=== PATIENT | female | born 1970 | race Caucasian/White ===

== ENCOUNTER → 2016-07-10 | Outpatient (CLI) | payer BC ==
--- NOTE | 2016-07-11 06:37 | PAP/PSG TECHNICIAN REPORT ---
[facility] Spray Blender Polysomnogram Report Study name: None Report date: 07/11/2016 Study date: 07/10/2016 Referring Physician: DR. BROWN Name: GIANCARLO ROTHMAN Interpreting Physician: Philippe Salazar M.D. Date of : 1970 Spray Blender: Nikunj Reyna RPSGT. Sex: Female Age: 46 StudyType: PSG Weight: 290 lbs Height: 46 years, Height 5' 4" BMI: 49.77 Medications: FLOVENT HFA 110 MCG/ACT, HYDROXYCHLOROQUINE SULFATE 200 MG, NAPROXEN 500 MG, NYSTATIN [id number], OMEGA 3, VENTOLIN HFA 108 90 BASE Patient History PATIENT HAS HISTORY OF EARNEST SNORING AND WITNESSED APNEAS. ALSO, HAS HISTORY OF RESTLESS LEGS AND DAYTIME SLEEPINESS. SHE IS CURRENTLY BEING EVALUATED FOR BARIATRIC SURGERY. SHE IS HERE TODAY FOR AN EVALUATION OF RANDAL. ESS = 5 RM 7 Parameters Monitored NPSG: E1-M2, E2-M1, Fp1-M2, Fp2-M1, F3-M2, F4-M2, F4-M1, C3-M2, C4-M2, C4-M1, O1-M2, O2-M2, O2-M1, T3-M2, T4-M1, P3-M2, P4-M1, CHIN1, CHIN2, HR, EKG, Legs, PFLOW, SNOR, FLOW, CFLOW, Tidal Volume, THOR, ABDO, SpO2, PLTH, CPRESS, ETCO2 Wave, ETCO2, pH Sleep Architecture Sleep Stages Time at Lights Off 10:29:54 PM STAGES Time (min.) TST (%) Time at Lights On 5:43:24 AM Wake 64.5 -- Total Recording Time (TRT) 434.00 min. N1 18.5 5 Total Sleep Period (TSP) 416.5 min. N2 213.0 58 Total Sleep Time (TST) 369.0min. N3 61.5 17 Awake Time 65.0 min. REM 76.0 21 Wake after Sleep Onset 48.5 min. Sleep Efficiency (SE) 85 % Sleep Onset Latency (ENRIQUE) 16.0 min. Number of Stage 1 Shifts None Awakenings 22 Stage Changes 78 Number of REM periods 3 REM 76.0 21 REM Latency 188.5 min. NREM 293.0 79 Body Position Analysis Supine Right Left Side Prone Vertical Total Sleep Time (min.) 2.3 80.0 117.0 197.00 181.4 0.0 Total Sleep Time (%) 0% 22% 32% 53 47% N/A% Total Sleep Time REM (min.) 0.0 0.0 27.5 None 48.5 0.0 Total Sleep Time NREM (min.) 0.0 80.0 89.5 None 123.5 0.0 Intermittent Wake (min.) 2.3 33.0 19.8 None 9.4 0.0 Total Sleep Period (%) 0% None None None None None Arousals Myoclonus (PLM) * Events Count Index Events Count Index Spontaneous 14 2 Events Awake (PLMW) 32 29.8 Respiratory 2 0.3 Events Asleep w/ Arousal (PLMA) 7 1.1 PLM 7 1 Events Asleep w/o Arousal (PLMS) 63 10.2 Snoring 1 0 Total Asleep 70 11.4 Total 24 4 Total 102 14 Respiratory Analysis * CA OA MA CH H RERA Total Count 0 0 0 0 69 0 69 Index 0.0 0.0 0.0 0 11.2 0 11.2 Mean Duration 0.0 0.0 0.0 0.00 26.5 0.0 26.5 Longest Duration 0.0 0.0 0.0 0.00 0.0 0.0 58.9 Respiratory Event Summary Total Supine ~Supine Right Left Prone REM NREM Apneas Count 0 N/A 0 0 0 0 0 0 Index 0.0 N/A 0 0.0 0.0 0 0 0 Hypopneas (4% Desat) Count 69 N/A 69 5 32 32 47 22 Index 11.2 N/A 11 3.8 16.4 11.2 37.1 4.5 Apneas & All Hypopneas Count 69 N/A 69 5 32 32 47 22 Index 11.2 N/A 11 4 16 11 37.1 4.5 Respiratory Events (Childcare Worker+All Hyp+RERA) Count 69 N/A 69 5 32 32 47 22 Index 11.2 N/A 11 3.8 16.4 11.2 37.1 4.5 Respiratory Related Arousal Count 2 N/A 2 1 0 1 1 1 Index 0.3 N/A 0 1 0 0 1 0 Snoring Analysis Supine Right Left Prone REM NREM Total Snore duration 8.5 min Snores count N/A 102 54 321 36 441 477 Snore mean duration 1.1 Sec Snores index N/A 77 28 112 28.4 90.3 77.6 TST with snoring (%) 2.3% Desaturation Event Summary: Minimum %SpO2 Event Count Mean/Min/Max Duration(sec.) Desaturation Index % Time In Bed > 90 60 43.6 / 15.8 / 107.2 11.6 71.9 86 - 90 16 31.8 / 15.3 / 74.2 9.4 23.8 81 - 85 5 29.0 / 16.5 / 61.3 18.7 3.7 76 - 80 1 20.0 / 20.0 / 20.0 23.0 0.6 71 - 75 0 N/A 0.0 0.0 66 - 70 0 N/A 0.0 0.0 61 - 65 0 N/A 0.0 0.0 56 - 60 0 N/A 0.0 0.0 51 - 55 0 N/A 0.0 0.0 < 50 0 N/A 0.0 0.0 Total REM NREM Awake <50% 0.0 min. 0.0 min. 0.0 min. 0.0 min. 51 - 60% 0.0 min. 0.0 min. 0.0 min. 0.0 min. 61 - 70% 0.0 min. 0.0 min. 0.0 min. 0.0 min. 71 - 80% 2.7 min. 2.5 min. 0.0 min. 0.2 min. 81 - 90% 118.7 min. 43.2 min. 71.5 min. 3.9 min. 91 - 100% 310.0 min. 30.3 min. 221.5 min. 58.3 min. Average 91 88 92 93 Minimum SpO2 74 74 87 76 Desaturation Event Index 9.8 37.9 4.5 0.9 # Desat. Events below 89% 55 44 11 0 Time(%) with Saturation below 89% 11.4 8.2 3.0 0.2 Time(min.) with Saturation below 89% 49.4 35.3 13.1 1.0 Time (mins) REM (mins) NREM (mins) % of TST SpO2 Below 90% 70 48 N22 20.5 SpO2 Below 88% 40 0 0 9 Heart Rate Analysis Min (bpm) Max (bpm) Average (bpm) Awake 54 205 73 NREM 51 86 68 REM 57 92 72 Overall 51 92 69 Supplemental O2 Values Minimum O2 level: None Value Start Time End Time Spray Blender Comments Ms. Rothman slept in the right, left, supine and prone positions. No cardiac arrhythmia noted. Leg movements noted. No bruxism noted. Snoring was noted and scored as a 2 on a scale of 1 through 5. (0=no snoring, 5=snoring loud enough to be heard through a closed door or down the [address] way) Ms. Rothman awoke to use the restroom 0 times during the night. Ms. Rothman stated I slept as well as I do when I am in my own bed. The final report will be interpreted and signed by a sleep physician. The completed physician report will then be placed in the patient medical record. Therapy (cm H2O) 0 TIB (min.) 433.5 TST (min.) 369.0 Sleep Onset (min.) 16.0 REM Onset From Sleep (min.) 188.5 Sleep Efficiency % 85 Wakefulness (%) 15 Wakefulness (min.) 65.0 NREM 1 (%) 5 NREM 1 (min.) 18.5 NREM 2 (%) 58 NREM 2 (min.) 213.0 NREM 3 (%) 17 NREM 3 (min.) 61.5 REM (%) 21 REM (min.) 76.0 # Arousals 24 Arousal Index 4 # Snore 477 Snore Index 77.6 AHI 11.2 AHI Supine N/A AHI Non-Supine 11 NREM AHI 4.5 REM AHI 37.1 RDI 11.2 # Obstructive Apnea 0 # Central Apnea 0 # Mixed Apnea 0 # Hypopneas 69 RERAs 0 Total Respiratory Events 69 Time Below SpO2 89% (min.) 48.4 Mean NREM SpO2 (%) 92 Mean REM SpO2 (%) 88 Mean Sleep SpO2 (%) 91 Min NREM SpO2 (%) 87 Min REM SpO2 (%) 74 Position Supine (min.) 2.3 Position Non-supine (min.) 369.0 LM Index Sleep 11.4 LM Index NREM 10.6 LM Index REM 14.2 Mean Heart Rate (bpm) 69 Min Heart Rate (bpm) 51
--- NOTE | 2016-07-14 22:48 | POLYSOMNOGRAPH REPORT ---
CLINICAL DATA: A 46-year-old female with BMI of 49.[address] Knight and Dr. Walker with a history of loud snoring, witnessed apnea, arousals leg movements, and daytime sleepiness. She is being evaluated for bariatric surgery. SLEEP ARCHITECTURE: Total sleep period was 416.5 minutes. Total sleep time was 369 minutes divided between 293 minutes of non-REM sleep and 76 minutes of REM sleep. Sleep onset latency was 16 minutes. REM latency was delayed at 188.5 minutes. Sleep efficiency was 85%. Wake after sleep onset was 48.5 minutes. Sleep consisted of stage N1 5%, N2 58%, N3 17%, REM 21%. AROUSAL DATA: Twenty four arousals were recorded for an index of 4 per hour. PLM DATA: Seventy limb movements during sleep were noted for an index of 11.4 per hour with arousal index of 1.1 per hour. RESPIRATORY DATA: Mild sleep apnea was documented. The AHI was 11.2. There were 69 hypopneic episodes. The mean duration of hypopnea was 26.5 seconds. OXIMETRY DATA: Nocturnal hypoxemia was seen. Oxygen padma was 74% during REM. The mean saturation was 91%. Time below 88% was 40 minutes. EKG: Heart rates ranged from 51-92 beats per minute. No arrhythmias were noted. TEST DESIGNER'S COMMENTS: The patient slept in the right, left, supine, and prone positions. Snoring was mild, rated 2 on a scale of 1-5. IMPRESSION: Mild obstructive sleep apnea/hypopnea with nocturnal hypoxemia with an apnea-hypopnea index of 11.2 and an oxygen padma of 74% during REM sleep. RECOMMENDATIONS: The patient should proceed with bariatric surgery evaluation. She may benefit from treatment of her sleep apnea with CPAP if clinically indicated. ELIDA
== END | disposition home or self-care (01) ==
LOC: C.NEUR 21:00
PROVIDERS: ATTEND Internal Medicine Pulmonary Disease
DX: G47.33 Obstructive sleep apnea (adult) (pediatric) (principal); G47.36 Sleep related hypoventilation in conditions classified elsewhere

== ENCOUNTER → 2016-07-21 | Outpatient (CLI) | payer BC ==
[2016-07-21 16:30] VITALS: BP 187/87; PULSE 68
== END | disposition home or self-care (01) ==
LOC: C.NEUR 15:23
PROVIDERS: ATTEND Internal Medicine Pulmonary Disease
DX: G47.30 Sleep apnea, unspecified (principal); J45.909 Unspecified asthma, uncomplicated

== ENCOUNTER → 2016-07-22 | Outpatient (CLI) | payer BC ==
--- NOTE | 2016-07-23 05:51 | PAP/PSG TECHNICIAN REPORT ---
[facility] Aircraft Sales Representative Polysomnogram Report Study name: None Report date: 07/23/2016 Study date: 07/22/2016 Referring Physician: DR. BROWN Name: GIANCARLO ROTHMAN Interpreting Physician: Philippe Salazar M.D. Date of : 1970 Aircraft Sales Representative: LEON Hill. Sex: Female Age: 46 StudyType: PSG PAP Weight: 290 lbs Height: 46 years, Height 5' 4" Neck Circum: BMI: 49.77 Medications: Flovent HFA 110MCG/ACT, Hydroxychloroquine Sulfate 200mg, Naproxen 500mg, Nystatin [id number] unit/gm, [place] 3, Ventolin HFA 108 90Base Patient History Study started on room air with 4cwp cpap in room #8. 46 yr old female here tonight for a new titration study She had a diagnostic psg done here on 07/10/16 that had an AHI of 11.2. Her ESS=5/24. Parameters Monitored NPSG: E1-M2, E2-M1, Fp1-M2, Fp2-M1, F3-M2, F4-M2, F4-M1, C3-M2, C4-M2, C4-M1, O1-M2, O2-M2, O2-M1, T3-M2, T4-M1, P3-M2, P4-M1, CHIN1, CHIN2, HR, EKG, Legs, PFLOW, SNOR, FLOW, CFLOW, Tidal Volume, THOR, ABDO, SpO2, PLTH, CPRESS, ETCO2 Wave, ETCO2, pH Sleep Architecture Sleep Stages Time at Lights Off 10:06:18 PM STAGES Time (min.) TST (%) Time at Lights On 5:20:48 AM Wake 80.0 -- Total Recording Time (TRT) 434.50 min. N1 11.5 3 Total Sleep Period (TSP) 389.5 min. N2 194.5 55 Total Sleep Time (TST) 354.5min. N3 74.0 21 Awake Time 80.0 min. REM 74.5 21 Wake after Sleep Onset 49.0 min. Sleep Efficiency (SE) 82 % Sleep Onset Latency (ENRIQUE) 31.0 min. Number of Stage 1 Shifts None Awakenings 12 Stage Changes 50 Number of REM periods 6 REM 74.5 21 REM Latency 59.5 min. NREM 280.0 79 Body Position Analysis Supine Right Left Side Prone Vertical Total Sleep Time (min.) 44.6 175.5 164.0 339.50 0.0 0.0 Total Sleep Time (%) 4% 50% 46% 96 0% N/A% Total Sleep Time REM (min.) 0.0 58.0 16.5 None 0.0 0.0 Total Sleep Time NREM (min.) 15.0 117.5 147.5 None 0.0 0.0 Intermittent Wake (min.) 29.6 31.9 18.5 None 0.0 0.0 Total Sleep Period (%) 4% None None None None None Arousals Myoclonus (PLM) * Events Count Index Events Count Index Spontaneous 6 1 Events Awake (PLMW) 46 34.5 Respiratory 11 1.9 Events Asleep w/ Arousal (PLMA) 1 0.2 PLM 1 0 Events Asleep w/o Arousal (PLMS) 7 1.2 Snoring 2 0 Total Asleep 8 1.4 Total 20 3 Total 54 7 Respiratory Analysis * CA OA MA CH H RERA Total Count 0 0 0 0 53 0 53 Index 0.0 0.0 0.0 0 9.0 0 9.0 Mean Duration 0.0 0.0 0.0 0.00 41.1 0.0 41.1 Longest Duration 0.0 0.0 0.0 0.00 0.0 0.0 101.3 Respiratory Event Summary Total Supine ~Supine Right Left Prone REM NREM Apneas Count 0 0 0 0 0 N/A 0 0 Index 0.0 0 0 0.0 0.0 N/A 0 0 Hypopneas (4% Desat) Count 53 0 53 23 30 N/A 25 28 Index 9.0 0.0 9 7.9 11.0 N/A 20.1 6.0 Apneas & All Hypopneas Count 53 0 53 23 30 N/A 25 28 Index 9.0 0 9 8 11 N/A 20.1 6.0 Respiratory Events (Pantry Chef+All Hyp+RERA) Count 53 0 53 23 30 N/A 25 28 Index 9.0 0 9 7.9 11.0 N/A 20.1 6.0 Respiratory Related Arousal Count 11 0 11 2 9 N/A 3 8 Index 1.9 0 2 1 3 N/A 2 2 Snoring Analysis Supine Right Left Prone REM NREM Total Snore duration 4.5 min Snores count 1 5 285 N/A 4 287 291 Snore mean duration 0.9 Sec Snores index 4 2 104 N/A 3.2 61.5 49.3 TST with snoring (%) 1.3% Desaturation Event Summary: Minimum %SpO2 Event Count Mean/Min/Max Duration(sec.) Desaturation Index % Time In Bed > 90 52 37.1 / 10.5 / 60.0 19.7 36.7 86 - 90 38 28.2 / 9.3 / 56.0 8.8 59.9 81 - 85 3 10.3 / 9.3 / 11.0 12.4 3.4 76 - 80 0 N/A 0.0 0.0 71 - 75 0 N/A 0.0 0.0 66 - 70 0 N/A 0.0 0.0 61 - 65 0 N/A 0.0 0.0 56 - 60 0 N/A 0.0 0.0 51 - 55 0 N/A 0.0 0.0 < 50 0 N/A 0.0 0.0 Total REM NREM Awake <50% 0.0 min. 0.0 min. 0.0 min. 0.0 min. 51 - 60% 0.0 min. 0.0 min. 0.0 min. 0.0 min. 61 - 70% 0.0 min. 0.0 min. 0.0 min. 0.0 min. 71 - 80% 0.1 min. 0.1 min. 0.0 min. 0.0 min. 81 - 90% 273.4 min. 58.1 min. 205.5 min. 9.8 min. 91 - 100% 158.6 min. 16.3 min. 74.1 min. 68.2 min. Average 90 88 90 93 Minimum SpO2 80 80 86 84 Desaturation Event Index 10.1 29.8 6.0 6.0 # Desat. Events below 89% 51 36 13 2 Time(%) with Saturation below 89% 30.8 10.1 20.2 0.4 Time(min.) with Saturation below 89% 132.9 43.9 87.2 1.9 Time (mins) REM (mins) NREM (mins) % of TST SpO2 Below 90% 62 37 N25 58.8 SpO2 Below 88% 26 0 0 14 Heart Rate Analysis Min (bpm) Max (bpm) Average (bpm) Awake 43 237 60 NREM 42 73 58 REM 40 81 59 Overall 40 81 58 Supplemental O2 Values Minimum O2 level: None Value Start Time End Time Aircraft Sales Representative Comments Ms. Rothman slept in the right, left and supine positions. Cardiac arrhythmia and some leg movements were noted. No bruxism noted. CPAP was initiated at +4 CMH2O and up-titrated to an optimal level of +13 CMH2O, which nearly eliminated all respiratory events and snoring. A small Quattro Air full face mask by [employer] was used during titration. She did not use the restroom during the night. She stated that she did not sleep as well as when at home. The final report will be interpreted and signed by a sleep physician. The completed physician report will then be placed in the patient medical record. Therapy Event: Therapy (cm H20) 4 5 6 7 8 9 10 11 12 13 Total Time at Pressure (min.) 44.2 24.0 64.6 20.7 41.3 91.0 13.5 86.3 7.4 41.5 TST at Pressure (min.) 9.7 23.5 63.1 20.7 41.3 69.5 13.5 81.3 7.4 24.5 # Periods 1 1 1 1 1 1 1 1 1 1 Sleep Onset (min.) 31.0 0.0 0.0 0.0 0.0 0.0 0.0 0.0 0.0 0.0 REM Onset (min.) N/A N/A 22.4 N/A 36.1 0.0 0.0 0.0 0.0 0.0 Sleep Efficiency % 21 97 97 100 100 76 100 94 100 59 Wakefulness (%) 78.1 2.1 2.3 0.0 0.0 23.6 0.0 5.8 0.0 41.0 Wakefulness (min.) 34.5 0.5 1.5 0.0 0.0 21.5 0.0 5.0 0.0 17.0 NREM 1 (%) 5.7 2.1 3.1 0.0 0.0 4.9 0.0 0.6 0.0 3.6 NREM 1 (min.) 2.5 0.5 2.0 0.0 0.0 4.5 0.0 0.5 0.0 1.5 NREM 2 (%) 16.2 95.8 58.2 100.0 18.3 57.7 0.0 37.6 0.0 32.5 NREM 2 (min.) 7.2 23.0 37.6 20.7 7.6 52.5 0.0 32.5 0.0 13.5 NREM 3 (%) 0.0 0.0 33.3 0.0 69.1 0.0 0.0 27.8 0.0 0.0 NREM 3 (min.) 0.0 0.0 21.5 0.0 28.5 0.0 0.0 24.0 0.0 0.0 REM (%) 0.0 0.0 3.1 0.0 12.6 13.8 100.0 28.2 100.0 22.9 REM (min.) 0.0 0.0 2.0 0.0 5.2 12.5 13.5 24.3 7.4 9.5 # Arousals 2 2 7 1 1 5 0 1 0 1 Arousal Index 12.4 5.1 6.7 2.9 1.5 4.3 0.0 0.7 0.0 2.5 # Snore 3 32 161 17 72 2 0 1 1 2 Snore Index 18.6 81.8 153.1 49.2 104.7 1.7 0.0 0.7 8.1 4.9 AHI 24.8 10.2 8.6 23.2 7.3 2.6 26.6 7.4 16.2 4.9 AHI Supine N/A N/A N/A N/A N/A N/A N/A N/A N/A 0.0 AHI Non-Supine 24.8 10.2 8.6 23.2 7.3 2.6 26.6 7.4 16.2 12.7 NREM AHI 24.8 10.2 8.8 23.2 3.3 0.0 N/A 1.1 N/A 0.0 REM AHI N/A N/A 0.0 N/A 34.6 14.4 26.6 22.2 16.2 12.7 RDI 24.8 10.2 8.6 23.2 7.3 2.6 26.6 7.4 16.2 4.9 # Obstructive 0 0 0 0 0 0 0 0 0 0 # Central Ap 0 0 0 0 0 0 0 0 0 0 # Mixed 0 0 0 0 0 0 0 0 0 0 # Hypopneas 4 4 9 8 5 3 6 10 2 2 RERAS 0 0 0 0 0 0 0 0 0 0 Total Respiratory Events 4 4 9 8 5 3 6 10 2 2 Time Below SpO2 89.00% (min.) 0.7 5.9 15.0 3.7 23.4 34.1 11.7 31.6 2.6 2.4 Mean NREM SpO2 (%) 91 90 90 90 89 89 N/A 89 N/A 93 Mean REM SpO2 (%) N/A N/A 89 N/A 86 88 86 88 90 90 Mean Sleep SpO2 (%) 91 90 90 90 88 89 86 89 90 92 Min NREM SpO2 (%) 88 86 87 87 87 86 N/A 87 N/A 90 Min REM SpO2 (%) N/A N/A 85 N/A 83 82 80 82 86 86 Position Supine (min.) 0.0 0.0 0.0 0.0 0.0 0.0 0.0 0.0 0.0 15.0 Position Non-supine (min.) 9.7 23.5 63.1 20.7 41.3 69.5 13.5 81.3 7.4 9.5 LM Index Sleep 12.4 0.0 1.9 0.0 0.0 0.9 0.0 0.7 8.1 2.5 LM Index NREM 12.4 0.0 1.0 0.0 0.0 0.0 N/A 1.1 N/A 0.0 LM Index REM N/A N/A 30.0 N/A 0.0 4.8 0.0 0.0 8.1 6.3 Mean Heart Rate (bpm) 57 63 65 61 63 57 60 53 53 50 Min Heart Rate (bpm) 47 48 47 52 52 46 48 40 41 42
--- NOTE | 2016-07-24 10:03 | POLYSOMNOGRAPH REPORT ---
CLINICAL DATA: A 46-year-old female with a BMI of 49.[address] Walker for a new titration study. She had a sleep study done on 07/10/2016 which showed mild sleep apnea with an AHI of 11.2. SLEEP ARCHITECTURE: Total sleep period was 389.5 minutes. Total sleep time was 354.5 minutes divided between 280 minutes of non-REM sleep and 74.5 minutes of REM sleep. Sleep onset latency was delayed at 31 minutes. REM latency was 59.5 minutes. Sleep efficiency was 82%. Wake after sleep onset was 49 minutes. Sleep consisted of stage N1 3%, N2 55%, N3 21%, and REM 21%. AROUSAL DATA: Twenty arousals were recorded for an index of 3 per hour. PLM DATA: Eighty limb movements during sleep were noted for an index of 1.4 per hour with arousal index of 0.2 per hour. RESPIRATORY DATA: The AHI was 9. There were 53 hypopneic episodes. The mean duration of hypopnea was 41 seconds. OXIMETRY DATA: Nocturnal hypoxemia was seen. Oxygen padma was 80% during REM. The mean saturation was 90%. Time below 88% was 26 minutes. EKG: Heart rates ranged from 42-81 beats per minute. There were occasional episodes of sinus arrhythmia noted. PAINTER ORDNANCE'S COMMENTS AND TREATMENT SUMMARY: The patient slept in the right, left, and supine positions. A small Quattro Air full facemask by [employer] was used. She was started on CPAP and titrated up to optimal pressure level of 13 cm of water pressure. At her final pressure setting of 13 cm water pressure, she slept for 24.5 minutes with an AHI of 4.9. IMPRESSION: Obstructive sleep apnea/hypopnea, nocturnal hypoxemia corrected with CPAP at 13 cm of water pressure, small Quattro full facemask by [employer]. RECOMMENDATIONS: The patient should be started on the above noted treatment regimen and seen back in followup within 90 days to document efficacy and compliance. [facility]
== END | disposition home or self-care (01) ==
LOC: C.NEUR 21:00
PROVIDERS: ATTEND Internal Medicine Pulmonary Disease
DX: G47.33 Obstructive sleep apnea (adult) (pediatric) (principal)

== ENCOUNTER → 2017-02-26 | Outpatient (CLI) | payer BC ==
--- NOTE | 2017-02-26 12:38 | MAMMOGRAPHY REPORT ---
BILATERAL DIGITAL SCREENING MAMMOGRAM TOMOSYNTHESIS WITH CAD: 02/26/2017 CLINICAL HISTORY: Routine screening. TECHNIQUE: Breast tomosynthesis in addition to standard 2D mammography was performed. Current study was also evaluated with a Computer Aided Detection (CAD) system. COMPARISON: Comparison is made to exams dated: 02/14/2016 mammogram, 03/28/2014 mammogram, 03/01/2013 m ammogram, 09/04/2010 mammogram, and 02/03/2012 mammogram - [facility] [place]. BREAST COMPOSITION: The tissue of both breasts is almost entirely fatty. FINDINGS: No suspicious masses, calcifications, or areas of architectural distortion are noted in ei ther breast. There has been no significant interval change compared to prior exams. IMPRESSION: ACR BI-RADS CATEGORY 1: NEGATIVE There is no mammographic evidence of malignancy. A 1 year screening mammogram is recommended. The pa tient will receive written notification of the results. Approximately 10% of breast cancers are not detected with mammography. A negative mammographic report should not delay biopsy if a clinically suggestive mass is present. Moni Reed M.D. ah/:02/26/2017 08:35:23 Cash On Delivery Clerk: Esau WOODARD(R)(M), [facility] letter sent: Normal 1/2 BI-RADS Code: ACR BI-RADS Category 1: Negative
== END | disposition home or self-care (01) ==
LOC: C.MAMM 07:50
PROVIDERS: ATTEND Obstetrics & Gynecology
DX: Z12.31 Encounter for screening mammogram for malignant neoplasm of breast (principal)

== ENCOUNTER → 2017-03-02 | Outpatient (CLI) | payer BC ==
--- NOTE | 2017-03-02 13:02 | DIAGNOSTIC IMAGING REPORT ---
L HIP UNILATERAL 2 VIEWS CLINICAL HISTORY: M25.552 Left hip [id number] pain COMPARISON: None. DISCUSSION: The bones and joint spaces appear intact. There is no evidence of fracture, dislocation or bony disease. There is no evidence for soft tissue swelling. IMPRESSION: Negative study. The above report was generated using voice recognition software. It may contain grammatical, syntax or spelling errors. Electronically signed by: Vikas Robledo M.D. 03/02/2017 1:01 PM Dictated Date/Time: 03/02/2017 1:01 PM
== END | disposition home or self-care (01) ==
LOC: C.RAD1850 12:48
PROVIDERS: ATTEND Physician Assistant Medical
DX: M25.552 Pain in left hip (principal)

== ENCOUNTER → 2017-05-19 | Outpatient (CLI) | payer BC | END | disposition home or self-care (01) | LOC: C.PAPS 11:23 | PROVIDERS: ATTEND Obstetrics & Gynecology | DX: Z01.419 Encounter for gynecological examination (general) (routine) without abnormal findings (principal) ==

== ENCOUNTER → 2017-05-26 | Outpatient (CLI) | payer BC | END | disposition home or self-care (01) | LOC: C.LABBFT 15:37 | PROVIDERS: ATTEND Nurse Practitioner | DX: J02.9 Acute pharyngitis, unspecified (principal) ==

== ENCOUNTER → 2017-10-07 | Outpatient (CLI) | payer BC ==
--- NOTE | 2017-10-15 02:41 | POLYSOMNOGRAPH REPORT ---
CLINICAL DATA: The patient is a 47-year-old female with a history of sleep apnea. Her initial study done 07/10/2016, showed an apnea hypopnea index of 11.2. A second study done 07/22/2016 resulted in treatment with nasal CPAP at 13 cm. She has done well with CPAP. She underwent bariatric surgery. She has lost 110 pounds. This study is done to evaluate whether or not she still has sleep apnea after significant weight loss. RECORDING RESULTS: The total recording time was 10 hours. The patient's estimated sleep time was 7.4 hours. RESPIRATORY DATA: The patient had a total of 3 respiratory events, all hypopneas. Hypopneas were scored according to the 4% desaturation rule. The maximum respiratory event was 26 seconds. The BRENDA was only 0.4 events per hour. This is normal and reflects no significant sleep apnea. OXIMETRY DATA: The mean saturation for the night was 95%. The minimum saturation was 90%. HEART RATE DATA: The lowest heart rate was 41 beats per minute. The mean heart rate was 58 beats per minute. SNORING DATA: Snoring was seen during most of the night. IMPRESSION: No evidence of clinically significant sleep apnea on this home sleep apnea test. RECOMMENDATIONS: 1. The patient does not need to wear nasal CPAP. 2. She is encouraged to continue with her weight loss efforts.
== END | disposition home or self-care (01) ==
LOC: C.NEUR 08:25
PROVIDERS: ATTEND Internal Medicine Pulmonary Disease
DX: G47.33 Obstructive sleep apnea (adult) (pediatric) (principal)

== ENCOUNTER 2019-04-22 07:44 | Observation (INO) ==
--- NOTE | 2019-03-29 11:28 | PAT Medication Instructions ---
Medication Instructions Date of Service March 29, 2019 Home Medications folic acid 1 mg tablet 1 mg PO QAM medroxyprogesterone 150 mg/mL intramuscular syringe 150 mg IM .COMPLEX multivitamin tablet 1 tab PO BID nystatin 100,000 unit/gram topical powder 1 appln TOP TID PRN calcium citrate 200 mg (950 mg) tablet 200 mg PO BID cholecalciferol (vitamin D3) 1,000 unit capsule 1,000 units PO QAM cyanocobalamin (vit B-12) 1,000 mcg/mL injection kit 1,000 mcg IM .COMPLEX hydroxychloroquine 200 mg tablet 200 mg PO BID methotrexate sodium (PF) 25 mg/mL injection solution 15 mg SUBCUT .COMPLEX omega-3 fatty acids 1,000 mg capsule 1,000 mg PO QAM omeprazole 20 mg capsule,delayed release 20 mg PO HS acetaminophen [Tylenol Extra Strength] 500 - 1,000 mg PO Q6H PRN ASK your surgeon for instructions medroxyprogesterone 150 mg/mL intramuscular syringe 150 mg IM .COMPLEX ASK your prescriber and surgeon hydroxychloroquine 200 mg tablet 200 mg PO BID methotrexate sodium (PF) 25 mg/mL injection solution 15 mg SUBCUT .COMPLEX STOP taking 2 weeks before surgery (or as soon as possible if surgery is within 2 weeks) omega-3 fatty acids 1,000 mg capsule 1,000 mg PO QAM STOP taking 24 hours before surgery nystatin 100,000 unit/gram topical powder 1 appln TOP TID PRN DO NOT take the morning of surgery folic acid 1 mg tablet 1 mg PO QAM multivitamin tablet 1 tab PO BID calcium citrate 200 mg (950 mg) tablet 200 mg PO BID cholecalciferol (vitamin D3) 1,000 unit capsule 1,000 units PO QAM cyanocobalamin (vit B-12) 1,000 mcg/mL injection kit 1,000 mcg IM .COMPLEX Take morning of surgery With a small sip of water, OTHERWISE NOTHING TO EAT OR DRINK AFTER MIDNIGHT: acetaminophen [Tylenol Extra Strength] 500 - 1,000 mg PO Q6H PRN (okay to take up to 4 hours prior to surgery if needed) Take evening before surgery multivitamin tablet 1 tab PO BID calcium citrate 200 mg (950 mg) tablet 200 mg PO BID omeprazole 20 mg capsule,delayed release 20 mg PO HS acetaminophen [Tylenol Extra Strength] 500 - 1,000 mg PO Q6H PRN (if needed) Other Notes If you have any questions please call us at [phone] or [phone] or [phone] or [phone]
--- NOTE | 2019-03-29 12:02 | Anesthesiology Consultation ---
Date of Service March 29, 2019 Assessment & Plan (1) Encounter for pre-operative examination: - Check test AM DOS Chart Review Chart Review: Pending: Refer to Additional Notes / Consult section (pending p reop testing (labs, c-spine xray)) and Patient seen in Pre Admission Testing Teaching & Discussion Pre-Anesthesia Teaching/Discussion Notes: Instructed NPO after midnight before surgery,except medications with 15 cc of water. Medication instructions provided according to the PAT guidelines. History Surgery Operation Date: 04/22/19 07:30 Proposed Procedures p Robotic Total Laparoscopic Hysterectomy - Latricia Moore MD, FACOG Height/Weight Height: 5 ft 4.5 in Weight: 99.6 kg Allergies Allergy/AdvReac Type Severity Reaction Status Date / Time NSAIDS (Non-Steroidal AdvReac Advised to Verified 03/29/19 12:07 Anti-Inflamma avoid s/p gastric sleeve Sulfa Drugs Allergy Unknown Rash Uncoded 03/29/19 10:52 Medications Home Medications Medication Instructions Recorded Confirmed Last Taken folic acid 1 mg tablet 1 mg PO QAM 02/09/19 03/29/19 Unknown medroxyprogesterone 150 mg/mL 150 mg IM .COMPLEX ml 02/09/19 03/29/19 Unknown intramuscular syringe multivitamin tablet 1 tab PO BID 02/09/19 03/29/19 Unknown nystatin 100,000 unit/gram topical 1 appln TOP TID PRN 02/09/19 03/29/19 Unknown powder calcium citrate 200 mg (950 mg) 200 mg PO BID tab 02/16/19 03/29/19 Unknown tablet cholecalciferol (vitamin D3) 1,000 1,000 units PO QAM 02/16/19 03/29/19 Unknown unit capsule cyanocobalamin (vit B-12) 1,000 1,000 mcg IM .COMPLEX 02/16/19 03/29/19 Unknown mcg/mL injection kit hydroxychloroquine 200 mg tablet 200 mg PO BID #180 tab 02/16/19 03/29/19 Unknown methotrexate sodium (PF) 25 mg/mL 15 mg SUBCUT .COMPLEX ml 02/16/19 03/29/19 Unknown injection solution omega-3 fatty acids 1,000 mg 1,000 mg PO QAM 02/16/19 03/29/19 Unknown capsule omeprazole 20 mg capsule,delayed 20 mg PO HS #90 cap 02/16/19 03/29/19 Unknown release syringe with needle, safety 3 mL #300 ea 02/16/19 03/29/19 Unknown 22 gauge x 1 1/2" acetaminophen [Tylenol Extra 500 - 1,000 mg PO Q6H PRN 03/28/19 03/29/19 Unknown Strength] Past Medical History Medical History Asthma stable HSIL (high grade squamous intraepithelial lesion) on Pap smear of cervix Migraine, unspecified, not intractable, without status migrainosus Obstructive sleep apnea of adult sleep study s/p gastric sleeve "negative" for RANDAL- no CPAP now Rheumatoid arthritis Chronic obstructive pulmonary disease stable GERD (gastroesophageal reflux disease) controlled HPV (human papilloma virus) infection Obesity Exercise / Class Metabolic Activity II 4-5 Yardwork/Stairs/Walk up hill Past Family History Family History Sister Breast cancer Aunt Systemic lupus erythematosus maternal Breast cancer Father Alcohol abuse Cirrhosis Myocardial infarction Mother Diabetes Murmur Thyroid disorder Grandmother (Paternal) Rheumatoid arthritis Grandfather (Paternal) Family history of diabetes mellitus Other Dyslipidemia Hypertension Past Surgical History Surgical History H/O myringotomy S/P LASIK surgery S/P ORIF (open reduction internal fixation) fracture RLE S/P adenoidectomy S/P laparoscopic sleeve gastrectomy 2016 S/P myomectomy S/P tooth extraction [place] teeth extracted Past Anesthesia History No Hx of Anesthesia Complications Mother- "Slow to wake"/morphine related headaches History of PONV No Hx of PONV and No Hx of Motion Sickness Social History Smoking Status: Former smoker tobacco type: cigarettes Do You Dip or Chew Tobacco: No Smoking End Date: QUIT 09/06/2010; hx 20 cigarettes/day Hx Alcohol Use: Yes Alcohol type: beer, wine and hard liquor alcohol intake frequency: holidays/special occasions only Hx Substance Use: No Review of Systems Reflux controlled. Patient denies chest pain, shortness of breath, dyspnea on exertion, cough, wheezing, palpitations. Physical Exam Vital Signs VITALS BP 126/80 P 55 TEMP 98.1 SP02 97%RA RESP 16 PHYSICAL Full neck and c-spine range of motion. Full TMJ range of motion. TMD 3.5 finger breaths Mallampati Score 2 Dentition: missing molars, several crowns Lungs: clear throughout to auscultation Cardiac: regular rate and rhythm, I/ systolic murmur Spine: normal Carotid arteries: negative bruit Extremities: no edema Testing Echocardiogram Date: 03/01/13 EF 60%. Mild LAD. No RWMA. No significant valvular disease. Stress Test Date: 10/15/16 Type: DSE Stress ECHO/EKG with no evidence of inducible ischemia. LVEF 55-59%. Mild MR/TR. 101% MPHR.
--- NOTE | 2019-03-29 12:46 | XRay Report ---
XR cervical spine 2 or 3V CLINICAL HISTORY: 48 years-old Female presenting with RHEUMATOID ARTHRITIS. TECHNIQUE: Lateral view of the cervical spine in neutral position as well as lateral view in flexion and extension were obtained. COMPARISON: Correlation made to CT neck from 2005. FINDINGS: Neutral view of the cervical spine demonstrates straightening of normal cervical lordosis and trace k yphosis. Vertebral bodies maintain normal height and alignment. Intervertebral disc heights preserved . No advanced degenerative change. No osseous spinal canal narrowing is appreciated on. Normal preden bailey interval. No prevertebral soft tissue swelling. No acute fracture or subluxation. On flexion positioning, slight increase in kyphotic curvature of the cervical spine. No dynamic sublu xation. Normal predental interval. Extension positioning demonstrates normal cervical lordosis. No dynamic subluxation. Normal predental interval. IMPRESSION: 1. No change in alignment at the atlantodental articulation with flexion or extension. No evidence o f dynamic subluxation. 2. No advanced degenerative changes or radiographic evidence of acute osseous injury. Electronically signed by: Jose Valenzuela M.D. 03/29/2019 12:44 PM
[2019-03-29 13:26] LABS: Basophils # (auto) 0.03 K/uL (0-0.2); Basophils % (auto) 0.4 %; Eosinophils # (auto) 0.13 K/uL (0-0.5); Eosinophils % (auto) 1.9 %; Hematocrit (blood only) 37.2 % (37-47); Hemoglobin 12.7 g/dL (12.0-16.0); Immature Granulocytes # (auto) 0.01 K/uL (0.00-0.02); Immature Granulocytes % (auto) 0.1 %; Lymphocytes # (auto) 2.79 K/uL (1.2-3.4); Lymphocytes % (auto) 41.5 %; Mean Corpuscular Hgb Conc 34.1 g/dL (32-36); Mean Corpuscular Volume 87.9 fL (80-100); Mean Platelet Volume 9.3 fL (7.4-10.4); Monocytes # (auto) 0.48 K/uL (0.11-0.59); Monocytes % (auto) 7.1 %; Neutrophils # (auto) 3.28 K/uL (1.4-6.5); Platelet Count 294 K/uL (130-400); RDW Coefficient of Variation 14.2 % (11.5-14.5); RDW Standard Deviation 45.8 fL (36.4-46.3); Red Blood Count 4.23 M/uL (4.2-5.4); White Blood Count 6.72 K/uL (4.8-10.8)
[2019-03-29 13:31] LABS: BUN Creatinine Ratio 19.5 (10-20); Calcium 8.9 mg/dl (8.5-10.1); Creatinine Clr Calc Pharmacy 126.5 ml/min; Est GFR (African American) 122.9; Est GFR (Non-African American) 106.1; Potassium 4.3 mmol/L (3.5-5.1)
[~2019-04-22 07:44] MED LIST: CEFAZOLIN 2000MG 2,000 MG/15 ML SYR IV SCH; LACTATED RINGER'S 1,000 ML IV SCH; LR 15ML/HR IV SCH
[2019-04-22] MEDS ORDERED: PROPOFOL IV EMULSION 10 MG/ML 20 ML VIAL IV ONE (09:15)
[2019-04-22] MEDS ORDERED: DEXAMETHASONE SOD INJ 4 MG/ML VIAL ONE (09:15)
[2019-04-22] MEDS ORDERED: ONDANSETRON INJ 2 MG/ML 2 ML VIAL ONE (09:15)
[2019-04-22] MEDS ORDERED: GLYCOPYRROLATE 0.2 MG/ML VIAL ONE ×2 (09:15→12:14)
[2019-04-22] MEDS ORDERED: LIDOCAINE HCL 2% 2 ML VIAL/AMP(20MG/ML) INFIL ONE (09:15)
[2019-04-22] MEDS ORDERED: MIDAZOLAM HCL 1 MG/ML 2ML VIAL ONE (09:15)
[2019-04-22] MEDS ORDERED: fentaNYL citrate 100 MCG/2 ML VIAL ONE ×2 (09:15→11:50)
[2019-04-22] MEDS ORDERED: NEOSTIGMINE METHYLSULFATE 5 MG/5 ML SYR ONE (09:15)
[2019-04-22] MEDS ORDERED: ePHEDrine sulfate 50 MG/ML AMP IV PRN (09:25)
[2019-04-22] MEDS ORDERED: ATROPINE SULFATE 0.1 MG/ML 10ML SYR IV PRN (09:25)
[2019-04-22] MEDS ORDERED: NALOXONE HCL 0.4 MG/1 ML VIAL/CARP IV PRN (09:25)
[2019-04-22] MEDS ORDERED: HYDROmorphone INJ 1 MG/ML SYRINGE IV PRN (09:25)
[2019-04-22] MEDS ORDERED: LABETALOL HCL IV 5 MG/ML 20ML IV PRN (09:25)
[2019-04-22] MEDS ORDERED: PROMETHAZINE HCL 12.5 MG in SODIUM CHLORIDE 0.9% 50 ML IV PRN ×2 (09:25→14:03)
[2019-04-22] MEDS ORDERED: FLUMAZENIL 0.1 MG/1 ML 10 ML VIAL IV PRN (09:25)
[2019-04-22] MEDS ORDERED: ONDANSETRON INJ 2 MG/ML 2 ML VIAL IV PRN ×2 (09:25→14:03)
--- NOTE | 2019-04-22 09:58 | History & Physical Bridge Note ---
Date of Service April 22, 2019 History & Physical Bridge Note I have examined the patient, reviewed the History & Physical and in the interval since the performance of the History & Physical I have noted the following changes of clinical significance: no changes noted
[2019-04-22] MEDS ORDERED: METHYLENE BLUE 0.5% 10 ML VIAL ONE (10:20)
[2019-04-22] MEDS ORDERED: BUPIVACAINE 0.5 % 5 MG/1 ML MPF 30ML VIAL ONE (10:20)
[2019-04-22] MEDS ORDERED: TISSEEL FIBRIN SEALANT 4ML TOP ONE (11:50)
[2019-04-22] MEDS ORDERED: ROCURONIUM BROMIDE 10 MG/ML 5 ML VIAL ONE (12:14)
--- NOTE | 2019-04-22 12:14 | Operative Report ---
PG Post Operative Report Pre & Post Diagnosis Operation Date: 04/22/19 09:20 Pre-Op Diagnosis: High Grade Squamous Intraepithelial Lesion Post-Op Diagnosis: High Grade Squamous Intraepithelial Lesion I identified the patient and participated in the time-out.: Yes Procedure Operation Date: 04/22/19 09:20 Actual Procedures p Robotic Total Laparoscopic Hysterectomy and salpingectomy, cystoscopy(Not Applicable) - Latricia Moore MD, FACOG Surgeon Latricia Moore MD, FACOG Catalyst Supervisor none Estimated Blood Loss 20 Findings Consistent with Post-Op Diagnosis Specimens Uterus cervix and fallopian tubes Description of Procedure Patient given a general anesthetic prepped and draped in dorsal lithotomy position Fonseca catheter placed in her bladder V care sewn to her cervix and attached in the usual fashion glove change and a supraumbilical incision made with scalpel Deleon technique to directly cutdown into the peritoneal cavity Deleon trocar placed port stabilized with balloon CO2 gas used to insufflate the abdomen Findings upper abdomen normal no sign of visceral organ damage deep Trendelenburg position then obtained findings uterus appeared somewhat irregular in shape and somewhat widened her adnexa appeared normal there were some flimsy adhesions in the left pelvic sidewall consistent with possible past infection nothing active. Ureters followed in normal course. 2 robotic ports one in the left one on the right placed left upper quadrant accessory port placed. Robot docked arm #1 was the monopolar yosi arm #2 bipolar [place] procedure was begun by first removing the fallopian tubes in the left and right side we identified the ureter on the left side and made a coagulation of the utero-ova michael blood supply distal to the left ovary this was then cut with the monopolar yosi same process with the round ligament uterine vessels were skeletonized bladder flap was skeletonized and dissected away left uterine vessels were coagulated with the bipolar [place] and cut with monopolar yosi in. The exact same process was repeated on the right side once the bladder was fully moved away from the anterior V care area I was able to make a colpotomy anteriorly with the monopolar yosi we complete the colpotomy remove the uterus through the vagina. It was kept in the vagina to maintain pneumoperitoneum until cuff was closed at this stage methylene blue was given by anesthesia Instrument exchange arm #1 became the large needle driver helper arm #2 the Cobra grasper 12 inch 2 oh 90-day V lock suture placed the excess report cuff was closed from left to right back right to left at least 1 cm full-thickness bites suture cut so there was no tail needle removed the excess report after generous irrigation suction Tisseel 4 mL was placed over the pedicles. Cystoscopy was performed by removing the Fonseca catheter there was good strong jets of bluish dye coming from the left and right ureter openings no sign of damage sutures or defects cystoscope removed and a new Fonseca catheter placed. Instruments removed under direct visualization robot of been undocked gas allowed to escape incisions injected with 0.5% Marcaine fascia closed with 0 Vicryl in the umbilical and left upper quadrant incisions 4-0 subcuticular Monocryl closures and then Dermabond applied sponge and instrument counts were correct it uterus been removed from the vagina before the end of the procedure I attest to the content of the Intraoperative Record and any orders documented therein. Any exceptions are noted below.
[2019-04-22] MEDS: fentaNYL citrate 100 MCG/2 ML VIAL IV PRN ×3 (12:30→12:40)
--- NOTE | 2019-04-22 12:56 | Anesthesiology Progress Note ---
Date of Service April 22, 2019 Anesthesia Post Procedure Vital Signs Vital Signs: Temp Pulse Pulse Resp BP Pulse Ox 04/22/19 12:47 47 L 15 109/74 98 04/22/19 12:35 48 L 15 121/77 95 04/22/19 12:25 49 L 12 120/70 100 04/22/19 12:15 50 L 13 131/75 100 04/22/19 12:09 36.6 C 57 L 16 131/79 99 04/22/19 08:30 140/77 04/22/19 08:18 36.9 C 50 L 18 131/100 96 Transfer of Care Handoff Completed per policy Notes Mental Status: alert / awake / arousable Patient Amnestic to Procedure: Yes Nausea / Vomiting: adequately controlled Pain: adequately controlled Airway Patency, RR, SpO2: stable & adequate BP & HR: stable & adequate Hydration State: stable & adequate Anesthetic Complications: no major complications apparent
[2019-04-22] MEDS ORDERED: NON-FORMULARY MEDICATION (Cyanocobalamin (Vitamin B-12) 1,000 MCG) IM SCH (14:03)
[2019-04-22] MEDS ORDERED: ACETAMINOPHEN 325 MG TAB PO PRN (14:03)
[2019-04-22] MEDS ORDERED: MAGNESIUM HYDROXIDE SUSP 30 ML UDC PO PRN (14:03)
[2019-04-22] MEDS ORDERED: METHOTREXATE SODIUM 50 MG/2 ML SQ SCH (14:03)
[2019-04-22] MEDS ORDERED: LACTATED RINGER'S 1,000 ML IV SCH (14:03)
[2019-04-22] MEDS ORDERED: MEDROXYPROGESTERONE 150 MG IM SCH (14:03)
[2019-04-22] MEDS ORDERED: PROMETHAZINE HCL 25 MG in SODIUM CHLORIDE 0.9% 50 ML IV PRN (14:03)
[2019-04-22] MEDS ORDERED: NON-FORMULARY MEDICATION (Melatonin 5 MG) PO PRN (14:03)
[2019-04-22] MEDS ORDERED: SIMETHICONE 80 MG CHEW PO PRN (14:03)
[2019-04-22] MEDS ORDERED: BISACODYL 10 MG SUPP PR PRN (14:03)
[2019-04-22] MEDS ORDERED: MEPERIDINE HCL 50 MG/ML CARP IV PRN (14:03)
[2019-04-22] MEDS ORDERED: KETOROLAC 30 MG/ML VIAL IV PRN (14:03)
[2019-04-22] MEDS ORDERED: OXYCODONE/ACETAMINOPHEN 5mg/325mg TAB PO PRN ×2 (14:03)
[2019-04-22] MEDS ORDERED: ZOLPIDEM TARTRATE 5 MG TAB PO PRN (14:03)
[2019-04-22] MEDS ORDERED: IBUPROFEN 600 MG TAB PO PRN (14:03)
[2019-04-22] MEDS ORDERED: MULTIVITAMIN TAB PO SCH (21:00)
[2019-04-22] MEDS ORDERED: HYDROXYCHLOROQUINE SULFATE 200 MG TAB PO SCH (21:00)
[2019-04-22] MEDS ORDERED: CALCIUM CITRATE 950 MG TAB PO SCH (21:00)
[2019-04-22] MEDS ORDERED: PANTOprazole 40 MG TAB PO SCH (21:00)
[2019-04-22] MEDS ORDERED: DOCUSATE SODIUM 100 MG CAP PO SCH (21:00)
[2019-04-23] MEDS ORDERED: FOLIC ACID 1 MG TAB PO SCH (09:00)
[2019-04-23] MEDS ORDERED: OMEGA-3 (PURIFIED FISH OIL) 1 GM CAP PO SCH (09:00)
[2019-04-23] MEDS ORDERED: CHOLECALCIFEROL 1,000 UNITS TAB PO SCH (09:00)
--- NOTE | 2019-04-25 07:56 | Discharge Summary ---
Date of Service April 25, 2019 [facility] , discharged same day Discharge Data Procedures Performed Operation Date: 04/22/19 09:20 Actual Procedures p Robotic Total Laparoscopic Hysterectomy and salpingectomy, (Not Applicable) - Latricia Moore MD, FACOG s Cystoscopy(Not Applicable) - Latricia Moore MD, FACOG Hospital Course (1) Menorrhagia: uncomplicated [facility] and discharged same day. Was ambulating, pain well controlled. Reviewed limitations and discharge instructions
== END 2019-04-22 17:55 | disposition home or self-care (01) ==
LOC: 4N 07:44 → ASU 07:44

== ENCOUNTER 2025-03-27 21:23 | Inpatient (IN) ==
[2025-03-27] MEDS ORDERED: VANCOMYCIN CONSULT ACTIVE PRN (22:17)
--- NOTE | 2025-03-27 22:19 | Emergency Department Note ---
Impression & Plan Wound infection, Immunocompromised state due to drug therapy, Chronic venous insufficiency ED Provider Note NAME: GIANCARLO QUEZADA AGE: 54 SEX: F : 1970 ARRIVES VIA: Walk-In INFORMANT: Patient ED PROVIDER(S): Milad De La Torre MD CHIEF COMPLAINT: Right lower leg wound/infection PLAN: Disposition: Admit MEDICAL DECISION MAKING: The patient is a pleasant 54-year-old woman with a past medical history of rheumatoid arthritis on methotrexate and hydroxychloroquine, diabetes, asthma, chronic right lower extremity lymphedema who presents to the emergency department via walk-in accompanied by her for evaluation of worsening right lower leg wound with concern for infection in setting of the patient's report of having minor trauma to the right lower leg in January when she slipped on stairs and suffered bruising/hematoma of the right lower leg. She reports that she had follow-up with her primary care doctor office for this and prior to traveling to [place] last month was prescribed doxycycline in the event for redness became more pronounced and suggestive of infection. Patient reports she was concerned for this and started taking this when she was in [place]. She denies any water exposure as she is cautious about avoiding contamination. She reports after returning from her trip couple of weeks ago noticed that there was a small eschar developing which then had opened over the past week or so with increased redness and combination of serious and yellowish discharge she denies any fevers. She denies any chest pain, cough, congestion, GI or symptoms. She reports she contacted her primary care doctor's office and was referred to the emergency department. On evaluation the patient no acute distress, afebrile with blood pressure 160/90s and vital signs otherwise stable. Patient's right anterior lower leg demonstrates an approximate 3 cm wound over the pretibial area with approximate 10 cm surrounding area of erythema warmth and mild tenderness. No crepitus. No discrete areas of fluctuance. Distal PMS intact. EKG without overt acute ischemia. WBC 11.2 K with neutrophilia but no left shift, nonspecific. H/H and platelets within normal limits chemistry without metabolic acidosis. Lactic acid 0.9, within normal limits. LFTs unremarkable. High-sensitivity troponin 4.7, within normal limits. ESR and CRP are elevated at 59 and 5.2, respectively. Procalcitonin is undetectable. UA without evidence of infection. CT of the right lower leg demonstrates phlegmonous change with subcutaneous skin thickening consistent with cellulitis. No soft tissue gas. Blood cultures were obtained and empiric treatment initiated with IV Zosyn and IV vancomycin given underlying immunocompromise state related to medications for her rheumatoid arthritis as well as chronic lymphedema. Dr. Benitez, [facility] hospitalist, to evaluate the patient for admission. Further management per admitting team. Triage Nursing notes reviewed and agree them. Prior/external medical records reviewed Vital Signs: reviewed Differential diagnosis: Cellulitis, abscess, MRSA infection, DVT, necrotizing fasciitis, dermatitis, drug eruption, allergic reaction, as well as other pathologies. ER treatment provided: See below. Diagnostics interpreted by me: ECG: Normal sinus rhythm, 76 bpm, no ectopy, no overt ST elevation or depression, QTc 400, QRS 94. Cardiac Monitoring: An order for continuous cardiac monitoring was placed and demonstrated Normal sinus rhythm, 76 bpm, no ectopy. Laboratory studies: See below Imaging studies: See below Consultation(s): Dr. Benitez [facility] hospitalist HPI: Per MDM. ROS: See above HPI for pertinent positives & negatives. A total of 10 systems reviewed and were otherwise negative. VITALS:See Below PHYSICAL EXAMINATION: GENERAL: Awake, alert, in no distress, BMI 51.3. HENT: Normocephalic, atraumatic. Oropharynx unremarkable. EYES: Normal conjunctiva. Sclera non-icteric. NECK: Supple. No nuchal rigidity. FROM. No JVD. RESPIRATORY: Clear to auscultation. CARDIAC: Regular rate, normal rhythm. Extremities warm and well perfused. Pulses equal. ABDOMEN: Soft, non-distended. No tenderness to palpation. No rebound or guarding. No masses. MUSCULOSKELETAL: Chest examination reveals no tenderness. The back is symmetrical on inspection without obvious abnormality. There is no CVA tenderness to palpation. No joint edema. LOWER EXTREMITIES: Acute on chronic chronic lymphedema of the right lower extremity. Right anterior lower leg demonstrates an approximate 3 cm wound over the pretibial area with approximate 10 cm surrounding area of erythema warmth and mild tenderness. No crepitus. No discrete areas of fluctuance. Distal PMS intact. NEURO: Normal sensorium. No sensory or motor deficits noted. SKIN: No jaundice noted. Milad De La Torre MD Past Med/Surg History Problem List (Updated 03/28/25 @ 05:25 by Milad De La Torre MD) Immunocompromised state due to drug therapy (Acute) Wound infection (Acute) Immunocompromised state due to drug therapy Traumatic open wound of right lower leg with infection Asthma stable; no inh Joint pain of lower extremity History of sleeve gastrectomy Dietary counseling and surveillance Obesity Metabolic syndrome Medication monitoring encounter Prediabetes Chronic venous insufficiency (Acute) Mitral regurgitation Colon cancer screening Morbid obesity Hearing loss Tinnitus GERD (gastroesophageal reflux disease) controlled HSIL (high grade squamous intraepithelial lesion) on Pap smear of cervix Migraine, unspecified, not intractable, without status migrainosus Obstructive sleep apnea of adult sleep study s/p gastric sleeve "negative" for RANDAL- no CPAP now Rheumatoid arthritis Medical History (Updated 03/28/25 @ 05:25 by Milad De La Torre MD) Morbid obesity with BMI of 45.0-49.9, adult History of COVID-19 05/2020; fever, sore throat; resolved Difficult intravenous access Chronic obstructive pulmonary disease stable Surgical History History of hysterectomy H/O myringotomy [place] teeth extracted S/P ORIF (open reduction internal fixation) fracture S/P myomectomy S/P adenoidectomy S/P tooth extraction S/P laparoscopic sleeve gastrectomy S/P LASIK surgery Family History Sister Breast cancer Aunt Systemic lupus erythematosus maternal Breast cancer Father Alcohol abuse Cirrhosis Myocardial infarction Mother Diabetes Murmur Thyroid disorder Grandmother (Paternal) Rheumatoid arthritis Grandfather (Paternal) Family history of diabetes mellitus Other Dyslipidemia Hypertension Denies family history of Ovarian cancer Prostate cancer Colorectal cancer Social History Smoking Status: Former smoker Tobacco Type: Cigarettes Age Started Using Tobacco: 15; Age Quit Using Tobacco: 40; packs per day: 1; Cigarettes Per Day: 20; Second Hand Exposure: No; Do You Dip or Chew Tobacco: No; Hx Alcohol Use: Yes Alcohol type: beer, wine and hard liquor Alcohol Intake Frequency: 2-4 x/Month Hx Substance Use: No Preferred Language: Greenlandic Communication Ability: Effective Visual Impairment: No Limitations Hearing Ability: Normal Inspector Outside Steam Distribution Required: No Beliefs That Will Affect Care: None marital status: Current Living Situation: Significant Other Current Living Situation Comment: boyfriend lives with patient current occupational status: employed 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 Feels Safe at Home: Yes Childhood Exposure to Second-Hand Smoke: Yes Diet: other Diet Comment: ativia caffeine: No during the past year weight has: remained stable Dental Care, Regularly: Yes Physical Activity Frequency: 1-2 Times per Week Seatbelt Use: always Sunscreen Use: Yes Assistive Devices: None Allergies Allergies Allergy/AdvReac Type Severity Reaction Status Date / Time Sulfa (Sulfonamide Allergy Unknown Rash Verified 03/28/25 02:57 Antibiotics) NSAIDS (Non-Steroidal AdvReac Advised to Verified 02/16/25 11:06 Anti-Inflamma avoid s/p gastric sleeve Home Meds Home Medications Medication Instructions Recorded Confirmed folic acid 1 mg tablet 1 mg PO BID 02/09/19 03/28/25 nystatin 100,000 unit/gram topical 1 appln topical TID PRN Rash 02/09/19 03/28/25 powder cholecalciferol (vitamin D3) 25 1,000 units PO QAM 02/21/20 03/28/25 mcg (1,000 unit) capsule calcium 200 mg (as 2 tab PO BID 03/28/25 03/28/25 citrate)-vitamin D3 6.25 mcg (250 unit) tablet (Citracal-D3 Petites) fish, borage, flaxseed oils-omega 1 cap PO QAM 03/28/25 03/28/25 3,6,9 comb no.1 1,200 mg capsule ([place] 3-6-9) pediatric multivitamin no.76 1 tab PO BID 03/28/25 03/28/25 (Flintstones Complete chewable tablet) Previous Rx's Medication Instructions Recorded Auto Titrating CPAP #1 ella 02/19/22 azelastine 137 mcg (0.1 %) nasal 2 spray intranasal DAILY PRN 04/17/23 spray allergy symptoms #90 mL cyanocobalamin (vitamin B-12) 1,000 mcg IM .COMPLEX #1 ella 11/01/24 1,000 mcg/mL injection kit syringe with needle, safety 3 mL #1 ella 11/01/24 22 gauge x 1 1/2" (Monoject Safety Syringes) furosemide 20 mg tablet 20 mg PO Q OTHER DAY PRN edema #30 01/30/25 tabs albuterol 90 mcg-budesonide 80 2 inh inhalation QID PRN shortness 02/01/25 mcg/actuation HFA aerosol inhaler of breath #5.9 grams (Airsupra) hydroxychloroquine 200 mg tablet 200 mg PO BID #180 tabs 02/10/25 insulin syringe-needle U-100 1 mL #50 ea 02/10/25 27 gauge x 1/2" methotrexate sodium (PF) 25 mg/mL 15 mg (0.6 mL) subcut Q7D #10 mL 02/10/25 injection solution budesonide-formoterol HFA 80 2 puff inhalation BID PRN 02/16/25 mcg-4.5 mcg/actuation aerosol bronchospasm #10.2 grams inhaler (Symbicort) Results & Data (ED) Vital Signs Vital Signs - 24 hr 03/27/25 21:34 03/27/25 22:45 03/27/25 23:59 Temperature 36.7 C Temperature Source Temporal Artery Scan Pulse Rate 84 77 Pulse Rate [Right Finger] 82 Pulse Rhythm [Right Finger] Regular Pulse Strength [Right Finger] Normal Respiratory Rate 16 18 Respiratory Effort / Characteristics Non-Labored Spontaneous Non-Labored Respiratory Depth Normal Normal Respiratory Pattern Regular Regular Blood Pressure [Right Arm] 161/92 H Blood Pressure Mean [Right Arm] 115 Blood Pressure Position [Right Arm] Sitting Pulse Oximetry 99 98 Oxygen Delivery Method Room Air Room Air Sepsis Recent Fever Within 48 Hours No Sepsis New/Unexplained Change in Mental Status N/A Sepsis Action Taken by Nursing No Action Required 03/28/25 01:00 Temperature Temperature Source Pulse Rate Pulse Rate [Right Finger] 91 H Pulse Rhythm [Right Finger] Pulse Strength [Right Finger] Respiratory Rate 16 Respiratory Effort / Characteristics Respiratory Depth Respiratory Pattern Blood Pressure [Right Arm] 126/96 Blood Pressure Mean [Right Arm] 106 Blood Pressure Position [Right Arm] Pulse Oximetry 98 Oxygen Delivery Method Room Air Sepsis Recent Fever Within 48 Hours Sepsis New/Unexplained Change in Mental Status Sepsis Action Taken by Nursing Laboratory Data Attestation: I reviewed the patient's lab results. 03/27/25 22:42 03/27/25 22:42 Lab Results 03/27/25 03/28/25 Range/Units 22:42 00:08 WBC 11.26 H (4.8-10.8) K/ul RBC 4.36 (4.20-5.40) M/uL Hgb 12.1 (12.0-16.0) g/dl Hct 37.7 (37.0-47.0) % MCV 86.5 (80.0-100.0) fL MCH 27.8 (25.0-34.0) pg MCHC 32.1 (32.0-36.0) g/dL RDW Std Deviation 44.7 (36.4-46.3) fL RDW Coeff of Keiko 14.3 (11.5-14.5) % Plt Count 350 (130-400) K/uL MPV 8.8 L (9.4-12.4) fL Immature Gran % (Auto) 0.3 % Neut % (Auto) 63.7 % Lymph % (Auto) 28.2 % [place] % (Auto) 6.1 % Eos % (Auto) 1.2 % Baso % (Auto) 0.5 % Neut # (Auto) 7.18 H (1.40-6.50) K/uL Lymph # (Auto) 3.17 (1.20-3.40) K/uL [place] # (Auto) 0.69 H (0.11-0.59) K/uL Eos # (Auto) 0.13 (0.00-0.50) K/uL Baso # (Auto) 0.06 (0.00-0.20) K/uL Immature Gran # (Auto) 0.03 (0.01-0.20) K/uL ESR 59 H (0-30) mm/hr PT 10.6 (9.0-12.0) Seconds INR 1.0 (0.9-1.1) Sodium 140 (136-145) mmol/L Potassium 3.9 (3.5-5.1) mmol/L Chloride 104 (98-107) mmol/L Carbon Dioxide 27 (21-32) mmol/L Anion Gap 9 (3-11) BUN 10 (6-23) mg/dl Creatinine 0.82 (0.6-1.2) mg/dl Est Cr Clr Drug Dosing 107.7 ml/min eGFR 84.95 BUN/Creatinine Ratio 12.2 (10-20) Glucose 105 H (70-99(Fasting)) mg/dl Lactate 0.9 (0.4-2.0) mmol/L Calcium 9.6 (8.6-10.3) mg/dl Magnesium 2.2 (1.7-2.4) mg/dl Total Bilirubin 0.4 (0.2-1.0) mg/dl Direct Bilirubin 0.0 (0-0.2) mg/dl AST 17 (13-39) U/L ALT 14 (7-52) U/L Alkaline Phosphatase 74 (34-104) U/L Troponin I High Sens 4.7 (0-14) pg/ml C-Reactive Protein 5.26 H (0-0.5) mg/dl Total Protein 7.6 (6.0-8.3) gm/dl Albumin 4.0 (3.4-5.0) gm/dl Procalcitonin < 0.02 (0-0.5) ng/ml Urine Color Yellow Urine Appearance Clear (Clear) Urine pH 6.0 (4.5-7.5) Ur Specific [place] 1.010 (1.000-1.030) Urine Protein Negative (Negative) Urine Glucose (UA) Negative (Negative) Urine Ketones Negative (Negative) Urine Blood Trace-intact H (Negative) Urine Nitrite Negative (Negative) Urine Bilirubin Negative (Negative) Urine Urobilinogen Negative (Negative) Ur Leukocyte Esterase Negative (Negative) Urine RBC 0-2 (0-2) /hpf Urine WBC 0-5 (0-5) /hpf Ur Epithelial Cells 0-2 (0-2) /hpf Urine Bacteria None Seen (None Seen) Urine Comment Administered Medications Discontinued Medications Piperacillin Sod/Tazobactam Sod (Zosyn) 4.5 gm in 100 mls @ 200 mls/hr IV NOW ONE; Protocol Stop: 03/27/25 22:46 Last Infusion: 03/28/25 01:13 Dose: Infused Documented By: Admin: 03/28/25 00:07 Dose: 200 mls/hr Documented By: ALVARO Vancomycin HCl 2,750 mg/ (Sodium Chloride) 555 mls @ 200 mls/hr IV NOW ONE Stop: 03/28/25 01:03 Last Infusion: 03/28/25 04:45 Dose: Infused Documented By: Admin: 03/28/25 01:01 Dose: 200 mls/hr Documented By: ALVARO Ioversol (Optiray 320 100ml) 93 ml IV ONCE ONE Stop: 03/28/25 00:03 Last Admin: 03/28/25 00:03 Dose: 93 ml Documented By: GES Imaging Data Radiologist's Impression: Lower Extremity CT 03/27/25 22:15 EXAM: CT tib/fib RT w con CLINICAL HISTORY: necrotic lower leg wound r/o deep infection TECHNIQUE: Contiguous axial CT images of the right tibia and fibula were obtained with intravenous contrast. Coronal and sagittal reconstructions were also performed and indicated to increase the sensitivity for detecting clinically relevant pathology. The CT scan was performed according to ALARA (as low as reasonably achievable) principles. COMPARISON: None. FINDINGS: Status post plate and screw fixation of the distal fibula. There is diffuse hypodense subcutaneous thickening and collection seen in the leg and around the ankle, predominantly along the anterior aspect of the lower third of the leg. Mild knee joint effusion is present. No acute fracture or dislocation is identified. No destructive osseous lesion is seen. The visualized muscles and tendons appear grossly unremarkable. No cortical destruction to suggest osteomyelitis is identified. No abscess formation is present. No significant joint effusion in the ankle joint is seen. There are no soft tissue masses. IMPRESSION: Status post plate and screw fixation of the distal fibula with no loosening. There is diffuse hypodense subcutaneous thickening and collection seen in the leg and around the ankle, predominantly along the anterior aspect of the lower third of the leg, likely cellulitis. Mild knee joint effusion. Electronically signed by Margarito Gipson 03-28-2025 01:24 AM Discharge Plan Visit Data Chief Complaint: Leg Injury/Pain Stated Complaint: R LEG INJURY WONT HEAL ED Provider: Milad De La Torre Discharge Problem: Wound infection, Immunocompromised state due to drug therapy, Chronic venous insufficiency Patient Disposition: Admitted As Inpatient Condition: Fair Discharge Instructions Interventions: ED Discharge Assessment Last Done: 03/28/25 02:46
[2025-03-27 23:04] LABS: Hematocrit (blood only) 37.7 % (37.0-47.0); Hemoglobin 12.1 g/dl (12.0-16.0); Immature Granulocytes # (auto) 0.03 K/uL (0.01-0.20); Immature Granulocytes % (auto) 0.3 %; Mean Corpuscular Hemoglobin 27.8 pg (25.0-34.0); Mean Corpuscular Volume 86.5 fL (80.0-100.0); Platelet Count 350 K/uL (130-400); RDW Standard Deviation 44.7 fL (36.4-46.3); Red Blood Count 4.36 M/uL (4.20-5.40); White Blood Count 11.26 K/ul (4.8-10.8)
[2025-03-27 23:26] LABS: Alanine Aminotransferase 14.0 U/L (7-52); Albumin Level 4.0 gm/dl (3.4-5.0); Alkaline Phosphatase 74.0 U/L (34-104); Anion Gap 9.0 (3-11); Bilirubin,Total 0.4 mg/dl (0.2-1.0); Blood Urea Nitrogen 10.0 mg/dl (6-23); Calcium 9.6 mg/dl (8.6-10.3); Carbon Dioxide 27.0 mmol/L (21-32); Chloride 104.0 mmol/L (98-107); Creatinine Clr Calc Pharmacy 107.7 ml/min; Glucose 105.0 mg/dl (70-99(Fasting)); Magnesium 2.2 mg/dl (1.7-2.4); Potassium 3.9 mmol/L (3.5-5.1); Sodium 140.0 mmol/L (136-145); Total Protein 7.6 gm/dl (6.0-8.3)
[2025-03-27 23:45] LABS: INR 1.0 (0.9-1.1); Prothrombin Time 10.6 Seconds (9.0-12.0)
[2025-03-28] MEDS: OPTIRAY 320 100ml IV ONE (00:03)
[2025-03-28] MEDS: PIPERACILLIN/TAZOBACTAM 4.5 GM/100 ML BAG IV ONE (00:07)
[2025-03-28 00:48] LABS: Appearance Urine Clear (Clear); Glucose Urine UA Negative (Negative)
[2025-03-28] MEDS: VANCOMYCIN HCL 2,750 MG in SODIUM CHLORIDE 0.9% 500 ML IV ONE (01:01)
[2025-03-28 01:12] LABS: Epithelial Cell Urine 0-2 /hpf (0-2)
--- NOTE | 2025-03-28 01:25 | CT Scan Report ---
EXAM: CT tib/fib RT w con CLINICAL HISTORY: necrotic lower leg wound r/o deep infection TECHNIQUE: Contiguous axial CT images of the right tibia and fibula were obtained with intravenous contrast. Coronal and sagittal reconstructions were also performed and indicated to increase the sensitivity for detecting clinically relevant pathology. The CT scan was performed according to ALARA (as low as reasonably achievable) principles. COMPARISON: None. FINDINGS: Status post plate and screw fixation of the distal fibula. There is diffuse hypodense subcutaneous thickening and collection seen in the leg and around the ankle, predominantly along the anterior aspect of the lower third of the leg. Mild knee joint effusion is present. No acute fracture or dislocation is identified. No destructive osseous lesion is seen. The visualized muscles and tendons appear grossly unremarkable. No cortical destruction to suggest osteomyelitis is identified. No abscess formation is present. No significant joint effusion in the ankle joint is seen. There are no soft tissue masses. IMPRESSION: Status post plate and screw fixation of the distal fibula with no loosening. There is diffuse hypodense subcutaneous thickening and collection seen in the leg and around the ankle, predominantly along the anterior aspect of the lower third of the leg, likely cellulitis. Mild knee joint effusion. Electronically signed by Margarito Gipson 03-28-2025 01:24 AM
--- NOTE | 2025-03-28 01:46 | History & Physical Report ---
Date of Service March 28, 2025 Assessment & Plan (1) Traumatic open wound of right lower leg with infection: (2) Immunocompromised state due to drug therapy: (3) Rheumatoid arthritis: (4) Asthma: Plan The patient is a 54-year-old female with a past medical history including rheum atoid arthritis on methotrexate and Plaquenil, history of sleeve gastrectomy, metabolic syndrome, chronic venous insufficiency, mild regurgitation, GERD, migraine, and RANDAL on auto CPAP. She reports that she frequently forgets to take her methotrexate, and despite that, her RA is significantly under control. The patient reports that she injured her right anterior tibial area sometime in mid January, and has been watching it since that time. She did go to her PCPs office, and received a prescription for Keflex, that she did ultimately use in february. Since that time admits to gradually worsening until the past few days which got significantly more red and swollen and ulcerated appearing, with purulent drainage. This worsening caused the patient to present to the emergency department for evaluation. In the emergency department, workup included a CT scan of the right lower extremity, which showed status post plate and screw fixation of the distal fibula with no loosening, and Other findings consistent with likely cellulitis. Laboratories included WBC of 11.26, ESR 59, CRP 5.26. Patient was started empirically on vancomycin IV and Zosyn IV by the emergency department. [facility]. Traumatic open wound of right lower extremity with infection/immunocompromised patient- Hold methotrexate and hydroxychloroquine Continue vancomycin IV and Zosyn IV begun in the ED. Consult wound care Lower extremity CT shows status post plate and screw fixation of the distal fibula with no loosening. There is diffuse hypodense subcutaneous thickening and collection seen in the leg and around the ankle predominantly along the anterior aspect of the lower third lower leg likely cellulitis. Mild knee joint effusion. Discussed with patient that she may be needing a PICC line and extended course of IV antibiotics, which she is agreeable to. She did have a course of Keflex for 7 days in mid February, with no improvement, and has worsened since that time. Rheumatoid arthritis- Patient reports that she frequently forgets her methotrexate, but does take hydroxychloroquine as directed. She considers her RA to be under good control, and think she will not have much of an issue holding immunosuppressive's while receiving IV antibiotics. Continue folic acid Asthma- Continue Symbicort, albuterol HFA Have DuoNebs every 2 hours available to use as needed Sleep apnea- At home uses auto CPAP with titration 5 to 15 cm of water Unable to order in the computer. Will place an order for 10 cm, with respir atory therapy to adjust History of Present Illness Chief Complaint: The patient reports that she injured her right anterior tibial area sometime in mid January, and has been watching it since that time. She did go to her PCPs office, and received a prescription for Keflex, that she did ultimately use in mid February. Since that time admits to gradually worsening until the past few days which got significantly more red and swollen and ulcerated appearing, with purulent drainage. This worsening caused the patient to present to the emergency department for evaluation. In the emergency department, workup included a CT scan of the right lower extremity, which showed status post plate and screw fixation of the distal fibula with no loosening, and Other findings consistent with likely cellulitis Primary Care Provider: Wm Knight MD The patient is a 54-year-old female with a past medical history including rheumatoid arthritis on methotrexate and Plaquenil, history of sleeve gastrectomy, metabolic syndrome, chronic venous insufficiency, mild regurgitation, GERD, migraine, and RANDAL on auto CPAP. She reports that she frequently forgets to take her methotrexate, and despite that, her RA is significantly under control. The patient reports that she injured her right anterior tibial area sometime in mid January, and has been watching it since that time. She did go to her PCPs office, and received a prescription for Keflex, that she did ultimately use in february. Since that time admits to gradually worsening until the past few days which got significantly more red and swollen and ulcerated appearing, with purulent drainage. This worsening caused the patient to present to the emergency department for evaluation. In the emergency department, workup included a CT scan of the right lower extremity, which showed status post plate and screw fixation of the distal fibula with no loosening, and Other findings consistent with likely cellulitis. Laboratories included WBC of 11.26, ESR 59, CRP 5.26. Patient was started empirically on vancomycin IV and Zosyn IV by the emergency department. [facility] was [facility]. Allergies Allergy/AdvReac Type Severity Reaction Status Date / Time NSAIDS (Non-Steroidal AdvReac Advised to Verified 02/16/25 11:06 Anti-Inflamma avoid s/p gastric sleeve Sulfa Drugs Allergy Unknown Rash Uncoded 02/16/25 11:06 Home Medications Medication Instructions Recorded Confirmed Type folic acid 1 mg tablet 1 mg PO BID 02/09/19 03/28/25 History nystatin 100,000 unit/gram topical 1 appln topical TID PRN Rash 02/09/19 03/28/25 History powder cholecalciferol (vitamin D3) 25 1,000 units PO QAM 02/21/20 03/28/25 History mcg (1,000 unit) capsule Auto Titrating CPAP #1 ea 02/19/22 02/16/25 Rx azelastine 137 mcg (0.1 %) nasal 2 spray intranasal DAILY PRN 04/17/23 03/28/25 Rx spray allergy symptoms #90 mL cyanocobalamin (vitamin B-12) 1,000 mcg IM .COMPLEX #1 ea 11/01/24 03/28/25 Rx 1,000 mcg/mL injection kit syringe with needle, safety 3 mL #1 ea 11/01/24 02/16/25 Rx 22 gauge x 1 1/2" (Monoject Safety Syringes) furosemide 20 mg tablet 20 mg PO Q OTHER DAY PRN edema #30 01/30/25 03/28/25 Rx tabs albuterol 90 mcg-budesonide 80 2 inh inhalation QID PRN shortness 02/01/25 03/28/25 Rx mcg/actuation HFA aerosol inhaler of breath #5.9 grams (Airsupra) hydroxychloroquine 200 mg tablet 200 mg PO BID #180 tabs 02/10/25 03/28/25 Rx insulin syringe-needle U-100 1 mL #50 ea 02/10/25 03/28/25 Rx 27 gauge x 1/2" methotrexate sodium (PF) 25 mg/mL 15 mg (0.6 mL) subcut Q7D #10 mL 02/10/25 03/28/25 Rx injection solution budesonide-formoterol HFA 80 2 puff inhalation BID PRN 02/16/25 03/28/25 Rx mcg-4.5 mcg/actuation aerosol bronchospasm #10.2 grams inhaler (Symbicort) calcium 200 mg (as 2 tab PO BID 03/28/25 03/28/25 History citrate)-vitamin D3 6.25 mcg (250 unit) tablet (Citracal-D3 [place]) fish, borage, flaxseed oils-omega 1 cap PO QAM 03/28/25 03/28/25 History 3,6,9 comb no.1 1,200 mg capsule ([place] 3-6-9) pediatric multivitamin no.76 1 tab PO BID 03/28/25 03/28/25 History (Flintstones Complete chewable tablet) Past Med/Surg History Problem List (Updated 03/28/25 @ 01:57 by Edward Benitez MD) Immunocompromised state due to drug therapy Traumatic open wound of right lower leg with infection Asthma stable; no inh Joint pain of lower extremity History of sleeve gastrectomy Dietary counseling and surveillance Obesity Metabolic syndrome Medication monitoring encounter Prediabetes Chronic venous insufficiency Mitral regurgitation Colon cancer screening Morbid obesity Hearing loss Tinnitus GERD (gastroesophageal reflux disease) controlled HSIL (high grade squamous intraepithelial lesion) on Pap smear of cervix Migraine, unspecified, not intractable, without status migrainosus Obstructive sleep apnea of adult sleep study s/p gastric sleeve "negative" for RANDAL- no CPAP now Rheumatoid arthritis Medical History (Updated 03/28/25 @ 01:57 by Edward Benitez MD) Morbid obesity with BMI of 45.0-49.9, adult History of COVID-19 05/2020; fever, sore throat; resolved Difficult intravenous access Chronic obstructive pulmonary disease stable Surgical History History of hysterectomy H/O myringotomy [place] teeth extracted S/P ORIF (open reduction internal fixation) fracture S/P myomectomy S/P adenoidectomy S/P tooth extraction S/P laparoscopic sleeve gastrectomy S/P LASIK surgery Family History Sister Breast cancer Aunt Systemic lupus erythematosus maternal Breast cancer Father Alcohol abuse Cirrhosis Myocardial infarction Mother Diabetes Murmur Thyroid disorder Grandmother (Paternal) Rheumatoid arthritis Grandfather (Paternal) Family history of diabetes mellitus Other Dyslipidemia Hypertension Denies family history of Ovarian cancer Prostate cancer Colorectal cancer Social History (Reviewed 02/16/25 @ 11:10 by SERENITY Hutton Smoking Status: Never smoker Tobacco Type: Cigarettes Age Started Using Tobacco: 15; Age Quit Using Tobacco: 40; packs per day: 1; Cigarettes Per Day: 20; Second Hand Exposure: No; Do You Dip or Chew Tobacco: No; Hx Alcohol Use: Yes Alcohol type: beer, wine and hard liquor Alcohol Intake Frequency: 2-4 x/Month Hx Substance Use: No Preferred Language: Upper Sorbian Communication Ability: Effective Visual Impairment: No Limitations Hearing Ability: Normal Dispersion Mixer Required: No Beliefs That Will Affect Care: None marital status: Current Living Situation: Other Current Living Situation Comment: boyfriend lives with patient current occupational status: employed 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 Feels Safe at Home: Yes Childhood Exposure to Second-Hand Smoke: Yes Diet: other Diet Comment: ativia caffeine: No during the past year weight has: remained stable Dental Care, Regularly: Yes Physical Activity Frequency: 1-2 Times per Week Seatbelt Use: always Sunscreen Use: Yes Assistive Devices: None Review of Systems Review of Systems: The patient denies chest pain, palpitations, shortness of breath, dyspnea on exertion, cough, lower extremity swelling, sore throat, fevers, chills, sweats, weight change, fatigue, nausea, vomiting, diarrhea , constipation, abdominal pain, pelvic pain, blood in urine or stool, dysuria, urinary frequency or urgency, lightheadedness, dizziness, headache, memory loss, loss of consciousness, rash, abnormal bruising or bleeding, imbalance, focal or generalized weakness, numbness or tingling in arms or legs, generalized arthralgias or myalgias, back or neck pain, or night sweats. The review of systems is otherwise negative other than for that already noted above, and at least 10 systems have been reviewed. Physical Exam Physical Exam: The patient is awake, alert and oriented 3, well developed and well nourished, normocephalic and atraumatic, lying in bed and in no acute distress. HEENT--PERRL, EOMI, mucous membranes and oropharynx normal. Neck--supple. No JVD. No bruits. Thyroid normal, trachea midline, no adenopathy. Heart--normal S1 and S2. No murmurs, rubs or gallops. Lungs--clear bilaterally, no respiratory distress, no accessory muscle use. Abdomen--normal bowel sounds and soft. Nontender. Nondistended. Extremities--no cyanosis or clubbing. No edema. There are good distal pulses b/l. Dermatologic--left lower extremity with trace pitting edema. Right lower extremity with 3+ erythema and warmth. Central area of ulceration. Neurologic--cranial nerves II through XII grossly intact. Rheumatologic--normal range of motion. Psychiatric--normal affect. Results & Data Results & Data Vital Signs (Past 12 Hours) Vital Signs Temp Pulse Pulse Resp BP Pulse Ox O2 Del Method 03/28/25 01:00 91 H 16 126/96 98 Room Air 03/27/25 23:59 82 18 161/92 H 98 Room Air 03/27/25 22:45 77 03/27/25 21:34 36.7 C 84 16 99 Room Air Laboratory Results Laboratory Results WBC 11.26 K/ul (4.8-10.8) H 03/27/25 22:42 RBC 4.36 M/uL (4.20-5.40) 03/27/25 22:42 Hgb 12.1 g/dl (12.0-16.0) 03/27/25 22:42 Hct 37.7 % (37.0-47.0) 03/27/25 22:42 MCV 86.5 fL (80.0-100.0) 03/27/25 22:42 MCH 27.8 pg (25.0-34.0) 03/27/25 22:42 MCHC 32.1 g/dL (32.0-36.0) 03/27/25 22:42 RDW Std Deviation 44.7 fL (36.4-46.3) 03/27/25 22:42 RDW Coeff of Keiko 14.3 % (11.5-14.5) 03/27/25 22:42 Plt Count 350 K/uL (130-400) 03/27/25 22:42 MPV 8.8 fL (9.4-12.4) L 03/27/25 22:42 Immature Gran % (Auto) 0.3 % 03/27/25:42 Neut % (Auto) 63.7 % 03/27/25:42 Lymph % (Auto) 28.2 % 10/20/25 22:42 [place] % (Auto) 6.1 % 03/27/25 22:42 Eos % (Auto) 1.2 % 03/27/25 22:42 Baso % (Auto) 0.5 % 03/27/25 22:42 Neut # (Auto) 7.18 K/uL (1.40-6.50) H 03/27/25 22:42 Lymph # (Auto) 3.17 K/uL (1.20-3.40) 03/27/25 22:42 [place] # (Auto) 0.69 K/uL (0.11-0.59) H 03/27/25 22:42 Eos # (Auto) 0.13 K/uL (0.00-0.50) 03/27/25:42 Baso # (Auto) 0.06 K/uL (0.00-0.20) 03/27/25: Immature Gran # (Auto) 0.03 K/uL (0.01-0.20) 03/27/25 22: ESR 59 mm/hr (0-30) H 03/27/25 22:42 PT 10.6 Seconds (9.0-12.0) 03/27/25 22:42 INR 1.0 (0.9-1.1) 03/27/25 22:42 Sodium 140 mmol/L (136-145) 03/27/25 22:42 Potassium 3.9 mmol/L (3.5-5.1) 03/27/25 22:42 Chloride 104 mmol/L (98-107) 03/27/25 22:42 Carbon Dioxide 27 mmol/L (21-32) 03/27/25 22:42 Anion Gap 9 (3-11) 03/27/25 22:42 BUN 10 mg/dl (6-23) 03/27/25 22:42 Creatinine 0.82 mg/dl (0.6-1.2) 03/27/25 22: Est Cr Clr Drug Dosing 107.7 ml/min 03/27/25 22:42 eGFR 84.95 03/27/25 22:42 BUN/Creatinine Ratio 12.2 (10-20) 03/27/25 22: Glucose 105 mg/dl (70-99(Fasting)) H 03/27/25 22:42 Lactate 0.9 mmol/L (0.4-2.0) 03/27/25 22:42 Calcium 9.6 mg/dl (8.6-10.3) 03/27/25 22:42 Magnesium 2.2 mg/dl (1.7-2.4) 03/27/25 22:42 Total Bilirubin 0.4 mg/dl (0.2-1.0) 03/27/25 22: Direct Bilirubin 0.0 mg/dl (0-0.2) 03/27/25 22:42 AST 17 U/L (13-39) 03/27/25 22:42 ALT 14 U/L (7-52) 03/27/25 22: Alkaline Phosphatase 74 U/L (34-104) 03/27/25 22: Troponin I High Sens 4.7 pg/ml (0-14) 03/27/25 22: C-Reactive Protein 5.26 mg/dl (0-0.5) H 03/27/25 22: Total Protein 7.6 gm/dl (6.0-8.3) 03/27/25 22: Albumin 4.0 gm/dl (3.4-5.0) 03/27/25 22: Procalcitonin < 0.02 ng/ml (0-0.5) 03/27/25 22:42 Urine Color Yellow 03/28/25 00:08 Urine Appearance Clear (Clear) 03/28/25 00:08 Urine pH 6.0 (4.5-7.5) 03/28/25 00:08 Ur Specific [place] 1.010 (1.000-1.030) 03/28/25 00:08 Urine Protein Negative (Negative) 03/28/25 00:08 Urine Glucose (UA) Negative (Negative) 03/28/25 00:08 Urine Ketones Negative (Negative) 03/28/25 00:08 Urine Blood Trace-intact (Negative) H 03/28/25 00:08 Urine Nitrite Negative (Negative) 03/28/25 00:08 Urine Bilirubin Negative (Negative) 03/28/25 00:08 Urine Urobilinogen Negative (Negative) 03/28/25 00:08 Ur Leukocyte Esterase Negative (Negative) 03/28/25 00:08 Urine RBC 0-2 /hpf (0-2) 03/28/25 00:08 Urine WBC 0-5 /hpf (0-5) 03/28/25 00:08 Ur Epithelial Cells 0-2 /hpf (0-2) 03/28/25 00:08 Urine Bacteria None Seen (None Seen) 03/28/25 00:08 Urine Comment 03/28/25 00:[address] 03/27/25 22:15 EXAM: CT tib/fib RT w con CLINICAL HISTORY: necrotic lower leg wound r/o deep infection TECHNIQUE: Contiguous axial CT images of the right tibia and fibula were obtained with intravenous contrast. Coronal and sagittal reconstructions were also performed and indicated to increase the sensitivity for detecting clinically relevant pathology. The CT scan was performed according to ALARA (as low as reasonably achievable) principles. COMPARISON: None. FINDINGS: Status post plate and screw fixation of the distal fibula. There is diffuse hypodense subcutaneous thickening and collection seen in the leg and around the ankle, predominantly along the anterior aspect of the lower third of the leg. Mild knee joint effusion is present. No acute fracture or dislocation is identified. No destructive osseous lesion is seen. The visualized muscles and tendons appear grossly unremarkable. No cortical destruction to suggest osteomyelitis is identified. No abscess formation is present. No significant joint effusion in the ankle joint is seen. There are no soft tissue masses. IMPRESSION: Status post plate and screw fixation of the distal fibula with no loosening. There is diffuse hypodense subcutaneous thickening and collection seen in the leg and around the ankle, predominantly along the anterior aspect of the lower third of the leg, likely cellulitis. Mild knee joint effusion. Electronically signed by Margarito Gipson 03-28-2025 01:24 AM Code Status & VTE Plan Code Status Full code VTE Prophylaxis Plan VTE Prophylaxis will be ordered: Yes PG Care Time/CCT Total # of Minutes Spent Total Time Spent with Patient: Total time spent is greater than 50% in coordination of care (as documented) at patient's floor/unit and/or counseling patient: Coding Level of Care Code 57200 INT INP/OBS CARE 3/75MIN Diagnoses Traumatic open wound of right lower leg with infection S81.801A; L08.9 Immunocompromised state due to drug therapy D84.821 Rheumatoid arthritis, involving unspecified site, unspecified whether rheumatoid factor present M06.9 Rheumatoid arthritis location: unspecified site Rheumatoid factor presence: unspecified presence Asthma J45.909 (3) Rheumatoid arthritis Rheumatoid arthritis location: unspecified site Rheumatoid factor presence: unspecified presence Qualified Code(s): M06.9 - Rheumatoid arthritis, unspecified
[2025-03-28] MEDS ORDERED: VANCOMYCIN CONSULT ACTIVE PRN (02:45)
[2025-03-28] MEDS ORDERED: AZELASTINE HCL 0.1% NASAL 200 SPRAYS/27,400 MCG BTL NAE PRN (02:45)
[2025-03-28] MEDS ORDERED: ALBUT/IPRATROP 3MG/0.5MG NEB 3 ML VIAL NEB PRN (02:45)
[2025-03-28] MEDS ORDERED: NYSTATIN POWDER 15GM BTL EXT PRN (02:45)
[2025-03-28] MEDS ORDERED: FLUTICASONE/VILANTEROL 100/25MCG 14 PUFFS/INHALER INH PRN (03:16)
[2025-03-28 05:27] LABS: Hematocrit (blood only) 33.0 % (37.0-47.0); Hemoglobin 11.0 g/dl (12.0-16.0); Immature Granulocytes # (auto) 0.04 K/uL (0.01-0.20); Immature Granulocytes % (auto) 0.4 %; Mean Corpuscular Hemoglobin 29.3 pg (25.0-34.0); Mean Corpuscular Volume 88.0 fL (80.0-100.0); Platelet Count 306 K/uL (130-400); RDW Standard Deviation 45.1 fL (36.4-46.3); Red Blood Count 3.75 M/uL (4.20-5.40); White Blood Count 8.98 K/ul (4.8-10.8)
[2025-03-28 05:55] LABS: Alanine Aminotransferase 13 U/L (7-52); Albumin Globulin Ratio 1.2 (0.9-2); Albumin Level 3.6 gm/dl (3.4-5.0); Alkaline Phosphatase 62 U/L (34-104); Bilirubin,Total 0.5 mg/dl (0.2-1.0); Blood Urea Nitrogen 9 mg/dl (6-23); Calcium 9.0 mg/dl (8.6-10.3); Carbon Dioxide 26 mmol/L (21-32); Chloride 108 mmol/L (98-107); Creatinine Clr Calc Pharmacy 122.7 ml/min; Globulin 3.0 gm/dl (2.5-4.0); Glucose 99 mg/dl (70-99(Fasting)); Total Protein 6.6 gm/dl (6.0-8.3)
[2025-03-28] MEDS: PIPERACILLIN/TAZOBACTAM 4.5 GM/100 ML BAG IV SCH (05:59)
[2025-03-28 07:42] LABS: Potassium 4.0 mmol/L (3.5-5.1); Sodium 142.0 mmol/L (136-145)
--- NOTE | 2025-03-28 08:44 | Hospitalist Progress Note ---
Date of Service March 28, 2025 Assessment & Plan (1) Traumatic open wound of right lower leg with infection: (2) Immunocompromised state due to drug therapy: (3) Rheumatoid arthritis: (4) Asthma: Plan The patient is a 54-year-old female with a past medical history including rheumatoid arthritis on methotrexate and Plaquenil, history of sleeve gastrectomy, metabolic syndrome, chronic venous insufficiency, mild regurgitation, GERD, migraine, and RANDAL on auto CPAP. She injured her right anterior tibial area sometime in mid January, and has been watching it since that time. She did go to her PCPs office, and received a prescription for Keflex, that she did ultimately use in mid February. Since that time admits to gradually worsening until the past few days which got significantly more red and swollen and ulcerated appearing, with purulent drainage. This worsening caused the patient to present to the emergency department for evaluation. In the emergency department, workup included a CT scan of the right lower extremity, which showed status post plate and screw fixation of the distal fibula with no loosening. Other findings consistent with likely cellulitis. Laboratories included WBC of 11.26, ESR 59, CRP 5.26. Patient was started empirically on vancomycin IV and Zosyn IV by the emergency department. She was then referred for evaluation for admission to the [facility]. #Traumatic open wound of right lower extremity with infection/immunocompromised patient She did have a course of Keflex for 7 days in mid February, with no improvement, and has worsened since that time; failure to outpatient antibiotics Hold methotrexate and hydroxychloroquine CRP elevated at 5.26; trend Wound care consult appreciated Lower extremity CT shows s/p plate and screw fixation of the distal fibula with no loosening There is diffuse hypodense subcutaneous thickening and collection seen in the leg and around the ankle predominantly along the anterior aspect of the lower third lower leg likely cellulitis. Mild knee joint effusion. Discussed with patient that she may be needing a PICC line and extended course of IV antibiotics, which she is agreeable to. While in the hospital, continue Zosyn 4.5 g IV q8h and daptomycin 600 mg IV q24h #Rheumatoid arthritis Patient reports that she frequently forgets her methotrexate, but does take hydroxychloroquine as directed Hold both (as above) She considers her RA to be under good control, and think she will not have much of an issue holding immunosuppressive's while receiving IV antibiotics. Continue folic acid #Asthma Continue Symbicort, albuterol HFA Have DuoNebs every 2 hours available to use as needed #Sleep apnea At home uses auto CPAP with titration 5 to 15 cm of water Unable to order in the computer. Will place an order for 10 cm, with respiratory therapy to adjust Disposition: Continued stay on MedSurg telemetry VTE PPx: Heparin 7500 mg SQ q12h Admission and Anticipated Discharge Date Admission Date: March 28, 2025 Supervising Physician Co-Signing Physician Notes I did not see or examine the aptient. I verified all angelo points and agree with Delvis Sagastume PA-C with the following exceptions and/or additions: None Subjective Mrs. Rothman reports she feels about the same today as yesterday. She is not having any pain in her right lower extremity this time; however, she reports the redness and swelling has not improved significantly since she is coming to the hospital. Patient originally injured her right lower extremity in January. It originally looked like a bruise "about the size of a baseball". However, it broke open on February 14, and patient was seen by her PCP on February 16 and started on outpatient antibiotics (Keflex 500 mg tablets x 7 days). Patient took the full course of this antibiotics while she was at [employer] with her boyfriend, however she returned in the pain and swelling did not improve. Patient denies prior history of MRSA infections. However, she has been noticing clear discharge from her ulceration site, as well as occasional "yellow" drainage on the bandages. No prior history of DVT/PE. ROS: Patient endorses right lower extremity pain, swelling, and erythema. Patient denies fever, chest pain, SOB, abdominal pain, changes in urinary bowels, or numbness or tingling in the right lower extremity. Review of Systems 2 Review of Systems: See HPI above Physical Exam 2 Physical Exam: General: no acute distress; pleasant affect; non-toxic appearing; cooperative; SpO2 94% on RA HEENT: normocephalic, atraumatic; PERRLA; vision and hearing intact Neck: supple; trachea midline Skin: warm, dry without signs of tenting; no cyanosis; no rashes, bruising, lesions, or erythema noted CV: chest wall NTP; RRR; S1/S2 normal; no murmurs/rubs/gallops; pulses intact and symmetric at radial, DP, and PT Lungs: no acute respiratory distress; symmetrical chest wall expansion; clear breath sounds across all lung [place] w/o adventitious sounds; no wheezing ABD: Soft, NTP; BS present; no rebound/guarding; no distention MSK: no tics or fasciculations RLE: +2 pitting edema around the right ankle; right anterior jones is warm to touch; erythema noted with a central area of ulceration and necrotic tissue (see photo below) Neuro: A&Ox3; normal mood and affect; fluent speech; sensation intact and symmetric in the LEs b/l Results & Data Results & Data Vital Signs (Past 12 Hours) Vital Signs Temp Pulse Pulse Resp BP Pulse Ox Pulse Ox 03/28/25 08:19 87 03/28/25 04:19 36.8 C 79 18 165/106 H 97 03/28/25 02:55 73 18 131/85 97 03/28/25 02:55 97 03/28/25 01:00 91 H 16 126/96 98 03/27/25 23:59 82 18 161/92 H 98 03/27/25 22:45 77 03/27/25 21:34 36.7 C 84 16 99 O2 Del Method O2 Del Method 03/28/25 08:19 03/28/25 04:19 Room Air 03/28/25 02:55 Room Air 03/28/25 02:55 Room Air 03/28/25 01:00 Room Air 03/27/25 23:59 Room Air 03/27/25 22:45 03/27/25 21:34 Room Air PG Care Time/CCT Total # of Minutes Spent Total Time Spent with Patient: Total time spent is greater than 50% in coordination of care (as documented) at patient's floor/unit and/or counseling patient: Coding [place] [address] SUB INP/OBS CARE 2/35MIN Patient Type Established Medical Decision Making Moderate Complexity Diagnoses Traumatic open wound of right lower leg with infection S81.801A; L08.9 Immunocompromised state due to drug therapy D84.821 Rheumatoid arthritis, involving unspecified site, unspecified whether rheumatoid factor present M06.9 Rheumatoid arthritis location: unspecified site Rheumatoid factor presence: unspecified presence Asthma J45.909 (3) Rheumatoid arthritis Rheumatoid arthritis location: unspecified site Rheumatoid factor presence: u nspecified presence Qualified Code(s): M06.9 - Rheumatoid arthritis, unspecified
[2025-03-28] MEDS: HEPARIN SOD 5,000 UNIT/0.5 ML VIAL SQ SCH (09:23)
[2025-03-28] MEDS: CHOLECALCIFEROL 25 MCG (1000 UNITS) TAB PO SCH (09:26)
[2025-03-28] MEDS: FOLIC ACID 1 MG TAB PO SCH (09:26)
[2025-03-28] MEDS: MULTIVITAMIN CHEWABLE TAB PO SCH (09:27)
[2025-03-28] MEDS: CALCIUM 600MG + VIT D 400 IU TAB PO SCH (09:27)
[2025-03-28] MEDS ORDERED: VANCOMYCIN HCL 1,500 MG in SODIUM CHLORIDE 0.9% 500 ML IV SCH (12:00)
[2025-03-28] MEDS: DAPTOmycin 600 MG in SYRINGE 0 ML IV ONE (13:34)
--- NOTE | 2025-03-29 06:08 | Electrocardiogram Report ---
Test Reason : Blood Pressure : */* mmHG Vent. Rate : 76 BPM Atrial Rate : 76 BPM P-R Int : 204 ms QRS Dur : 94 ms QT Int : 356 ms P-R-T Axes : 46 12 19 degrees QTcB Int : 400 ms Normal sinus rhythm Normal ECG No previous ECGs available Confirmed by Terry Odell ([id number]) on 03/29/2025 6:08:32 AM Referred By: REFERRED SELF Confirmed By: Terry Odell
[2025-03-29 07:14] LABS: Hematocrit (blood only) 33.7 % (37.0-47.0); Hemoglobin 11.1 g/dl (12.0-16.0); Immature Granulocytes # (auto) 0.01 K/uL (0.01-0.20); Immature Granulocytes % (auto) 0.2 %; Mean Corpuscular Hemoglobin 28.3 pg (25.0-34.0); Mean Corpuscular Volume 86.0 fL (80.0-100.0); Platelet Count 294 K/uL (130-400); RDW Standard Deviation 43.9 fL (36.4-46.3); Red Blood Count 3.92 M/uL (4.20-5.40); White Blood Count 6.25 K/ul (4.8-10.8)
[2025-03-29] MEDS: ACETAMINOPHEN 325 MG TAB PO PRN (07:39)
[2025-03-29 08:06] LABS: Albumin Level 3.5 gm/dl (3.4-5.0); Anion Gap 6.0 (3-11); Bilirubin,Total 0.5 mg/dl (0.2-1.0); Calcium 9.0 mg/dl (8.6-10.3); Carbon Dioxide 28.0 mmol/L (21-32); Chloride 107.0 mmol/L (98-107); Potassium 3.9 mmol/L (3.5-5.1); Sodium 141.0 mmol/L (136-145)
[2025-03-29 08:12] LABS: Alanine Aminotransferase 12.0 U/L (7-52); Albumin Globulin Ratio 1.1 (0.9-2); Alkaline Phosphatase 62.0 U/L (34-104); Blood Urea Nitrogen 8.0 mg/dl (6-23); Creatinine Clr Calc Pharmacy 108.8 ml/min; Globulin 3.1 gm/dl (2.5-4.0); Glucose 111.0 mg/dl (70-99(Fasting)); Total Protein 6.6 gm/dl (6.0-8.3)
--- NOTE | 2025-03-29 10:27 | Hospitalist Progress Note ---
Date of Service March 29, 2025 Assessment & Plan (1) Traumatic open wound of right lower leg with infection: (2) Immunocompromised state due to drug therapy: (3) Rheumatoid arthritis: (4) Asthma: Plan The patient is a 54-year-old female with a past medical history including rheumatoid arthritis on methotrexate and Plaquenil, history of sleeve gastrectomy, metabolic syndrome, chronic venous insufficiency, mild regurgitation, GERD, migraine, and RANDAL on auto CPAP. She injured her right anterior tibial area sometime in mid January, and has been watching it since that time. She did go to her PCPs office, and received a prescription for Keflex, that she did ultimately use in mid February. Since that time admits to gradually worsening until the past few days which got significantly more red and swollen and ulcerated appearing, with purulent drainage. This worsening caused the patient to present to the emergency department for evaluation. In the emergency department, workup included a CT scan of the right lower extremity, which showed status post plate and screw fixation of the distal fibula with no loosening. Other findings consistent with likely cellulitis. Laboratories included WBC of 11.26, ESR 59, CRP 5.26. Patient was started empirically on vancomycin IV and Zosyn IV by the emergency department. She was then referred for evaluation for admission to the [facility] Hospitalist service. #Traumatic open wound of right lower extremity with infection/immunocompromised patient She did have a course of Keflex for 7 days in mid February, with no improvement, and has worsened since that time Failure to outpatient antibiotics Hold methotrexate and hydroxychloroquine CRP trend 5.26 -> 4.70 Surface wound culture is still pending at this time Gram stain with no organisms seen BCx with NGTD on 03/29 Wound care nurse consult appreciated Lower extremity CT shows s/p plate and screw fixation of the distal fibula with no loosening There is diffuse hypodense subcutaneous thickening and collection seen in the leg and around the ankle predominantly along the anterior aspect of the lower third lower leg likely cellulitis. Mild knee joint effusion. Discussed with patient that she may be needing a PICC line and extended course of IV antibiotics, which she is agreeable to Continue Zosyn 4.5 g IV q8h Continue Daptomycin 600 mg IV q24h General surgery consult appreciated for potential debridement #Rheumatoid arthritis Patient reports that she frequently forgets her methotrexate, but does take hydroxychloroquine as directed Hold both (as above) She considers her RA to be under good control, and think she will not have much of an issue holding immunosuppressive's while receiving IV antibiotics. Continue folic acid #Asthma Continue Symbicort, albuterol HFA Have DuoNebs every 2 hours available to use as needed #Sleep apnea At home uses auto CPAP with titration 5 to 15 cm of water Unable to order in the computer. Will place an order for 10 cm, with respiratory therapy to adjust Disposition: Continued stay on MedSurg telemetry VTE PPx: Heparin 7500 mg SQ q12h Admission and Anticipated Discharge Date Admission Date: March 28, 2025 Supervising Physician Co-Signing Physician Notes The patient was not seen by me. The chart was reviewed. Case discussed with YARA Friedman. Agree with assessment and plan Subjective Mrs. Rothman is in good spirits this morning. While she woke up with a headache, this resolved after being given Tylenol. She also reports that she slept better last night when compared to the night prior. She has 0 out of 10 pain in her right lower extremity this morning. She was able to ambulate to the bathroom this morning, and reports she did not have pain with steps. Despite this, she does endorse purulent drainage from the wound site this morning. ROS: Patient endorses RLE swelling and erythema (improving). Patient denies RLE pain, fever, chest pain, SOB, abdominal pain, changes in urinary bowels, or numbness or tingling in the right lower extremity. Review of Systems 2 Review of Systems: See HPI above Physical Exam 2 Physical Exam: General: no acute distress; pleasant affect; non-toxic appearing; cooperative; SpO2 95% on RA HEENT: normocephalic, atraumatic; PERRLA; vision and hearing intact Neck: supple; trachea midline Skin: warm, dry without signs of tenting; no cyanosis; no rashes, bruising, lesions, or erythema noted CV: chest wall NTP; RRR; S1/S2 normal; no murmurs/rubs/gallops; pulses intact and symmetric at radial, DP, and PT Lungs: no acute respiratory distress; symmetrical chest wall expansion; clear breath sounds across all lung barbosa w/o adventitious sounds; no wheezing ABD: Soft, NTP; BS present; no rebound/guarding; no distention MSK: no tics or fasciculations RLE: +2 pitting edema around the right ankle; right anterior jones is warm to touch; erythema noted with a central 4.5 cm area of ulceration and necrotic tissue (see photo below); yellow/purulent drainage appreciated around the ulceration site Neuro: A&Ox3; normal mood and affect; fluent speech; sensation intact and symmetric in the LEs b/l Results & Data Results & Data Vital Signs (Past 12 Hours) Vital Signs Temp Pulse Resp BP BP Pulse Ox O2 Del Method 03/29/25 08:00 36.6 C 73 14 157/07 H 95 Room Air 03/29/25 02:55 37.0 C 71 18 150/85 H 94 Room Air 03/28/25 22:43 36.8 C 72 18 120/76 93 Room Air PG Care Time/CCT Total # of Minutes Spent Total Time Spent with Patient: Total time spent is greater than 50% in coordination of care (as documented) at patient's floor/unit and/or counseling patient: Coding [place] [address] SUB INP/OBS CARE 3/50MIN Patient Type Established Medical Decision Making High Complexity Diagnoses Traumatic open wound of right lower leg with infection S81.801A; L08.9 Immunocompromised state due to drug therapy D84.821 Rheumatoid arthritis, involving unspecified site, unspecified whether rheumatoid factor present M06.9 Rheumatoid arthritis location: unspecified site Rheumatoid factor presence: unspecified presence Asthma J45.909 (3) Rheumatoid arthritis Rheumatoid arthritis location: unspecified site Rheumatoid factor presence: u nspecified presence Qualified Code(s): M06.9 - Rheumatoid arthritis, unspecified
[2025-03-29 10:53] VITALS: RESP 18
--- NOTE | 2025-03-29 12:22 | Surgery Consultation ---
<Statement entered by Odalis Saldaña MD - 03/29/25 16:14> I agree with the assessment and plan of care Date of Consultation March 29, 2025 Assessment & Plan (1) Wound infection: This is a 54y F with a PMH of rheumatoid arthritis, morbid obesity, GERD, RANDAL who presented to the [facility] ED on 03/28/25 with a right lower extremity wound that has been worsening since january. She noticed last week that the wound became more red in appearance with darker tissue present therefore she was referred to the hospital for further evaluation and treatment. While here she underwent a lower extremity CT that showed diffuse hypodense subcutaneous thickening and collection seen in the leg and around the ankle, predominantly along the anterior aspect of the lower third of the leg, likely cellulitis. She was admitted under the hospitalist service with IV abx, wound care consultation, and wound cultures obtained. Today blood work shows WBC 6.2, Hbg 11.1, Cr 0.8. Vitals are stable and she is afebrile. Wound culture is showing Pseudomonas aeruginosa currently. Blood cultures negative. On exam wound is located on the RLE anterior jones. Pictures from wound care noted and appreciated in the chart. Currently wound care just placed a dressing of aquacel and tegaderm. There is some brown drainage noted. There is an area of erythema outlined and receding. She has some right foot swelling that patient states is usually present for her since her orthopedic surgery she had of the right lower extremity in the past. Wound care saw the patient prior to my arrival and was able to debride some of the superficial /necrotic tissue. Post debridement the wound bed appears clean. The erythema is reducing. For now recommend continued local wound care, can start santyl for some enzymatic debridement. She has no underlying abscess or fluid collection that needs to be drained. No plans for surgical intervention at this time. Abx to be tailored based on cultures. She can follow up in the wound care center upon discharge. History of Present Illness Attending Physician: Moustapha Redman MD History of Present Illness This is a 54y F with a PMH of rheumatoid arthritis, morbid obesity, GERD, RANDAL who presented to the [facility] ED on 03/28/25 with a right lower extremity wound that has been worsening. Patient states her wound started in January after she was walking up some stairs and missed a step. She stated it mostly started out as a bruise. She was heading to [place] in February and saw her PCP prior as it started draining some. She was prescribed a 7day course of keflex of which she took. Unfortunately the wound continue to drain and did not get much better. She noticed last week that the wound became more red in appearance therefore she was referred to the hospital for further evaluation and treatment. While here she underwent a lower extremity CT that showed diffuse hypodense subcutaneous thickening and collection seen in the leg and around the ankle, predominantly along the anterior aspect of the lower third of the leg, likely cellulitis. She was admitted under the hospitalist service with IV abx, wound care consultation, and wound cultures obtained. We have been consulted today for evaluation for consideration of debridement if necessary. She denies f/c. She is able to walk and pain is tolerable. No loss of sensations or range of motion per patient. RLE foot swelling normal for her since prior ortho surgery. Allergies Allergy/AdvReac Type Severity Reaction Status Date / Time Sulfa (Sulfonamide Allergy Unknown Rash Verified 03/28/25 02:57 Antibiotics) NSAIDS (Non-Steroidal AdvReac Advised to Verified 02/16/25 11:06 Anti-Inflamma avoid s/p gastric sleeve Home Medications Medication Instructions Recorded Confirmed Type folic acid 1 mg tablet 1 mg PO BID 02/09/19 03/28/25 History nystatin 100,000 unit/gram topical 1 appln topical TID PRN Rash 02/09/19 03/28/25 History powder cholecalciferol (vitamin D3) 25 1,000 units PO QAM 02/21/20 03/28/25 History mcg (1,000 unit) capsule Auto Titrating CPAP #1 ea 02/19/22 02/16/25 Rx azelastine 137 mcg (0.1 %) nasal 2 spray intranasal DAILY PRN 04/17/23 03/28/25 Rx spray allergy symptoms #90 mL cyanocobalamin (vitamin B-12) 1,000 mcg IM .COMPLEX #1 ella 11/01/24 03/28/25 Rx 1,000 mcg/mL injection kit syringe with needle, safety 3 mL #1 ea 11/01/24 02/16/25 Rx 22 gauge x 1 1/2" (Monoject Safety Syringes) furosemide 20 mg tablet 20 mg PO Q OTHER DAY PRN edema #30 01/30/25 03/28/25 Rx tabs albuterol 90 mcg-budesonide 80 2 inh inhalation QID PRN shortness 02/01/25 03/28/25 Rx mcg/actuation HFA aerosol inhaler of breath #5.9 grams (Airsupra) hydroxychloroquine 200 mg tablet 200 mg PO BID #180 tabs 02/10/25 03/28/25 Rx insulin syringe-needle U-100 1 mL #50 ea 02/10/25 03/28/25 Rx 27 gauge x 1/2" methotrexate sodium (PF) 25 mg/mL 15 mg (0.6 mL) subcut Q7D #10 mL 02/10/25 03/28/25 Rx injection solution budesonide-formoterol HFA 80 2 puff inhalation BID PRN 02/16/25 03/28/25 Rx mcg-4.5 mcg/actuation aerosol bronchospasm #10.2 grams inhaler (Symbicort) calcium 200 mg (as 2 tab PO BID 03/28/25 03/28/25 History citrate)-vitamin D3 6.25 mcg (250 unit) tablet (Citracal-D3 Pet[place]) fish, borage, flaxseed oils-omega 1 cap PO QAM 03/28/25 03/28/25 History 3,6,9 comb no.1 1,200 mg capsule ([place] 3-6-9) pediatric multivitamin no.76 1 tab PO BID 03/28/25 03/28/25 History (Flintstones Complete chewable tablet) Patient History Medical History Morbid obesity with BMI of 45.0-49.9, adult History of COVID-19 05/2020; fever, sore throat; resolved Difficult intravenous access Chronic obstructive pulmonary disease stable Surgical History History of hysterectomy H/O myringotomy [place] teeth extracted S/P ORIF (open reduction internal fixation) fracture RLE S/P myomectomy S/P adenoidectomy S/P tooth extraction S/P laparoscopic sleeve gastrectomy 2017 S/P LASIK surgery Family History Sister Breast cancer Aunt Systemic lupus erythematosus maternal Breast cancer Father Alcohol abuse Cirrhosis Myocardial infarction Mother Diabetes Murmur Thyroid disorder Grandmother (Paternal) Rheumatoid arthritis Grandfather (Paternal) Family history of diabetes mellitus Other Dyslipidemia Hypertension Denies family history of Ovarian cancer Prostate cancer Colorectal cancer Social History Smoking Status: Former smoker Tobacco Type: Cigarettes Age Started Using Tobacco: 15; Age Quit Using Tobacco: 40; packs per day: 1; Cigarettes Per Day: 20; Second Hand Exposure: No; Do You Dip or Chew Tobacco: No; Hx Alcohol Use: Yes Alcohol type: beer, wine and hard liquor Alcohol Intake Frequency: 2-4 x/Month Hx Substance Use: No Preferred Language: Syriac Communication Ability: Effective Visual Impairment: No Limitations Hearing Ability: Normal Wafer Slicer Required: No Beliefs That Will Affect Care: None marital status: Current Living Situation: Significant Other Current Living Situation Comment: boyfriend lives with patient current occupational status: employed 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 Feels Safe at Home: Yes Childhood Exposure to Second-Hand Smoke: Yes Diet: other Diet Comment: ativia caffeine: No during the past year weight has: remained stable Dental Care, Regularly: Yes Physical Activity Frequency: 1-2 Times per Week Seatbelt Use: always Sunscreen Use: Yes Assistive Devices: CPAP Review of Systems Constitutional: no fever and no chills Respiratory: + dyspnea Cardiovascular: no chest pain Gastrointestinal: no nausea and no vomiting Integumentary: right lower extremity wound, + pain and redness Neurologic: no gait abnormality, no loss of sensation and no numbness Physical Exam Physical Exam: awake/alert, no distress Respiratory: normal respiratory effort Gastrointestinal (Abdomen): Inspection/Auscultation: abdomen not distended Skin: right lower extremity wound noted on anterior jones. wound care just placed a dressing of aquacel and tegaderm. there is some brown drainage noted. there is an area of erythema outlined and receding. some right foot swelling that patient states is usually present for her Results & Data Vital Signs (Past 12 Hours) Vital Signs Temp Pulse Resp BP BP Pulse Ox O2 Del Method 03/29/25 10:48 97.9 F 66 18 136/91 95 Room Air 03/29/25 08:00 97.9 F 73 14 157/07 H 95 Room Air 03/29/25 02:55 98.6 F 71 18 150/85 H 94 Room Air Diagnostic Findings EXAM: CT tib/fib RT w con CLINICAL HISTORY: necrotic lower leg wound r/o deep infection TECHNIQUE: Contiguous axial CT images of the right tibia and fibula were obtained with intravenous contrast. Coronal and sagittal reconstructions were also performed and indicated to increase the sensitivity for detecting clinically relevant pathology. The CT scan was performed according to ALARA (as low as reasonably achievable) principles. COMPARISON: None. FINDINGS: Status post plate and screw fixation of the distal fibula. There is diffuse hypodense subcutaneous thickening and collection seen in the leg and around the ankle, predominantly along the anterior aspect of the lower third of the leg. Mild knee joint effusion is present. No acute fracture or dislocation is identified. No destructive osseous lesion is seen. The visualized muscles and tendons appear grossly unremarkable. No cortical destruction to suggest osteomyelitis is identified. No abscess formation is present. No significant joint effusion in the ankle joint is seen. There are no soft tissue masses. IMPRESSION: Status post plate and screw fixation of the distal fibula with no loosening. There is diffuse hypodense subcutaneous thickening and collection seen in the leg and around the ankle, predominantly along the anterior aspect of the lower third of the leg, likely cellulitis. Mild knee joint effusion. Electronically signed by Margarito Gipson 03-28-2025 01:24 AM Dictated: 03/27/25 234 Transcribed: PG Care Time/CCT Total # of Minutes Spent Total Time Spent with Patient: Total time spent is greater than 50% in coordination of care (as documented) at patient's floor/unit and/or counseling patient: Coding Level of Care Code 41132 IN/OBS CONSULT LVL 2,35M Diagnoses Wound infection T14.8XXA; L08.9
[2025-03-29] MEDS: DAPTOmycin 500 MG in SYRINGE 0 ML IV SCH (14:41)
[2025-03-29 22:41] VITALS: TEMP 98.1
[2025-03-30 03:51] LABS: Hematocrit (blood only) 34.7 % (37.0-47.0); Hemoglobin 11.3 g/dl (12.0-16.0); Immature Granulocytes # (auto) 0.01 K/uL (0.01-0.20); Immature Granulocytes % (auto) 0.2 %; Mean Corpuscular Hemoglobin 28.2 pg (25.0-34.0); Mean Corpuscular Volume 86.5 fL (80.0-100.0); Platelet Count 303 K/uL (130-400); RDW Standard Deviation 43.4 fL (36.4-46.3); Red Blood Count 4.01 M/uL (4.20-5.40); White Blood Count 6.62 K/ul (4.8-10.8)
[2025-03-30 04:07] LABS: Alanine Aminotransferase 11.0 U/L (7-52); Albumin Globulin Ratio 1.1 (0.9-2); Albumin Level 3.5 gm/dl (3.4-5.0); Alkaline Phosphatase 57.0 U/L (34-104); Anion Gap 9.0 (3-11); Bilirubin,Total 0.5 mg/dl (0.2-1.0); Blood Urea Nitrogen 12.0 mg/dl (6-23); Calcium 9.1 mg/dl (8.6-10.3); Carbon Dioxide 26.0 mmol/L (21-32); Chloride 106.0 mmol/L (98-107); Creatinine Clr Calc Pharmacy 104.8 ml/min; Globulin 3.2 gm/dl (2.5-4.0); Glucose 97.0 mg/dl (70-99(Fasting)); Potassium 3.8 mmol/L (3.5-5.1); Sodium 141.0 mmol/L (136-145); Total Protein 6.7 gm/dl (6.0-8.3)
[2025-03-30 07:54] VITALS: PULSE 57; O2SAT 95
--- NOTE | 2025-03-30 09:46 | Discharge Summary ---
Discharge Summary Date of Service March 30, 2025 Principal Dx & Hospital Course #1 = Principal Diagnosis (1) Traumatic open wound of right lower leg with infection: (2) Immunocompromised state due to drug therapy: (3) Rheumatoid arthritis: (4) Asthma: Plan The patient is a 54-year-old female with a past medical history including rheumatoid arthritis on methotrexate and Plaquenil, history of sleeve gastrectomy, metabolic syndrome, chronic venous insufficiency, mild regurgitation, GERD, migraine, and RANDAL on auto CPAP. She injured her right anterior tibial area sometime in mid January, and has been watching it since that time. She did go to her PCPs office, and received a prescription for Keflex, that she did ultimately use in mid February. Since that time admits to gradually worsening until the past few days which got significantly more red and swollen and ulcerated appearing, with purulent drainage. This worsening caused the patient to present to the emergency department for evaluation. In the emergency department, workup included a CT scan of the right lower extremity, which showed status post plate and screw fixation of the distal fibula with no loosening. Other findings consistent with likely cellulitis. Laboratories included WBC of 11.26, ESR 59, CRP 5.26. Patient was started empirically on vancomycin IV and Zosyn IV by the emergency department. She was then referred for evaluation for admission to the [facility]. #Traumatic open wound of right lower extremity with infection/immunocompromised patient She did have a course of Keflex for 7 days in mid February, with no improvement, and has worsened since that time Failure to outpatient antibiotics CRP trend 5.26 -> 4.70 Surface wound culture is still pending at this time Gram stain with no organisms seen BCx with NGTD on 03/29 Wound care nurse consult appreciated Lower extremity CT shows s/p plate and screw fixation of the distal fibula with no loosening There is diffuse hypodense subcutaneous thickening and collection seen in the leg and around the ankle predominantly along the anterior aspect of the lower third lower leg likely cellulitis. Mild knee joint effusion. IV daptomycin and Zosyn x 2 days in the hospital Surface wound culture grew pansensitive Pseudomonas aeruginosa Discharged on following antibiotics: Ciprofloxacin 750 mg p.o. q12h x 8 days QTc WNL at 400; no h/o aneurysms Metronidazole 500 mg p.o. q8h x 8 days Hold methotrexate and hydroxychloroquine while on abx Wound was debrided by wound care nurse while in hospital Recommend follow-up with the wound care clinic in the next 1 to 2 weeks #Rheumatoid arthritis Patient reports that she frequently forgets her methotrexate, but does take hydroxychloroquine as directed Hold both (as above) She considers her RA to be under good control, and thinks she will not have much of an issue holding immunosuppressives while receiving IV antibiotics Continue folic acid #Asthma Continue Symbicort, albuterol HFA Have DuoNebs every 2 hours available to use as needed #Sleep apnea At home uses auto CPAP with titration 5 to 15 cm of water Unable to order in the computer. Will place an order for 10 cm, with respiratory therapy to adjust Day of discharge 03/30: VSS Mrs. Rothman is in good spirits this morning. She reports she does not have any pain in her right lower extremity. She has been able to ambulate to the bathroom without any sharp stabbing pain in the leg. She is eager to return home today if possible. In regard to antibiotics, she reports she has not had ciprofloxacin or metronidazole in the past. No prior history of aneurysms or vascular issues. She does report she has an upcoming appointment with her PCP on April 11. She is also requesting that, given she has been discharged on antibiotics, she will be discharged with Diflucan as needed for yeast infection. ROS: Patient denies fever, chills, night sweats, chest pain, SOB, cough, abdominal pain, N/V/D, pain in the right lower extremity, or numbness or tingling in the right foot. Disposition: Discharge home Notes For Next Care Provider Patient hospitalized for IV antibiotics related to her right lower extremity wound/cellulitis. She received daptomycin 500 mg IV q24h and Zosyn 4.5 g IV q8h while in the hospital x 2 days. Her surface wound culture grew pansensitive Pseudomonas, and she will be discharged on ciprofloxacin and metronidazole for additional 8 days. Recommend she follow-up with the wound care center upon discharge. Admission HPI Per Admitting Provider The patient is a 54-year-old female with a past medical history including rheumatoid arthritis on methotrexate and Plaquenil, history of sleeve gastrectomy, metabolic syndrome, chronic venous insufficiency, mild regurgitation, GERD, migraine, and RANDAL on auto CPAP. She reports that she frequently forgets to take her methotrexate, and despite that, her RA is significantly under control. The patient reports that she injured her right anterior tibial area sometime in mid January, and has been watching it since that time. She did go to her PCPs office, and received a prescription for Keflex, that she did ultimately use in mid February. Since that time admits to gradually worsening until the past few days which got significantly more red and swollen and ulcerated appearing, with purulent drainage. This worsening caused the patient to present to the emergency department for evaluation. In the emergency department, workup included a CT scan of the right lower extremity, which showed status post plate and screw fixation of the distal fibula with no loosening, and Other findings consistent with likely cellulitis. Laboratories included WBC of 11.26, ESR 59, CRP 5.26. Patient was started empirically on vancomycin IV and Zosyn IV by the emergency department. She was then referred for evaluation for admission to the [facility]. Admission Exam Per Admitting Provider The patient is awake, alert and oriented 3, well developed and well nourished, normocephalic and atraumatic, lying in bed and in no acute distress. HEENT--PERRL, EOMI, mucous membranes and oropharynx normal. Neck--supple. No JVD. No bruits. Thyroid normal, trachea midline, no adenopathy. Heart--normal S1 and S2. No murmurs, rubs or gallops. Lungs--clear bilaterally, no respiratory distress, no accessory muscle use. Abdomen--normal bowel sounds and soft. Nontender. Nondistended. Extremities--no cyanosis or clubbing. No edema. There are good distal pulses b/l. Dermatologic--left lower extremity with trace pitting edema. Right lower extremity with 3+ erythema and warmth. Central area of ulceration. Neurologic--cranial nerves II through XII grossly intact. Rheumatologic--normal range of motion. Psychiatric--normal affect. Discharge Exam General: no acute distress; pleasant affect; non-toxic appearing; cooperative; SpO2 95% on RA HEENT: normocephalic, atraumatic; PERRLA; vision and hearing intact Neck: supple; trachea midline Skin: warm, dry without signs of tenting; no cyanosis; no rashes, bruising, lesions, or erythema noted CV: chest wall NTP; RRR; S1/S2 normal; no murmurs/rubs/gallops; pulses intact and symmetric at radial, DP, and PT Lungs: no acute respiratory distress; symmetrical chest wall expansion; clear breath sounds across all lung barbosa w/o adventitious sounds; no wheezing ABD: Soft, NTP; BS present; no rebound/guarding; no distention MSK: no tics or fasciculations RLE: +2 pitting edema around the right ankle; right anterior jones is warm to touch; erythema noted with a central 4.5 cm area of ulceration and necrotic tissue (see photos below); yellow/purulent drainage appreciated around the ulceration site Neuro: A&Ox3; normal mood and affect; fluent speech; sensation intact and symmetric in the LEs b/l PHOTO ON 03/29: PHOTO ON 03/29: PHOTO ON 03/30: Discharge Plan Discharge Items Patient Disposition: Home - Self-Care Reason For Visit: RLE WOUND INFECTION, IMMUNOCOMPROMISED Discharge Diagnosis: RLE wound, RLE cellulitis Condition on Discharge: Fair Activity: Resume your previous activity Non-emergency contact: Primary Care Provider Call non-emergency contact if: you have any medication questions, your symptoms worsen, your pain is not controlled and you have a fever Follow-up/Referrals: Wm Knight MD [Primary Care Provider] - Diet: Regular Addtl Attending Provider Instructions: You are hospitalized at [facility] from 03/28 for 03/30 for a right lower extremity wound. Initially, you were treated with an antibiotic called Rosy as an outpatient, but reported that you still had worsening of redness/swelling in your leg. For these reasons, you were hospitalized for IV antibiotics while awaiting a surface wound culture. You received IV daptomycin and Zosyn while in the hospital. You were seen by our wound care nurse, who debrided the wound while in the hospital. Please continue to clean and dress the wound once daily. We recommend that you follow-up with the wound care center upon discharge. While your white blood cell count was mildly elevated at 11.6 on arrival, it is back down to normal limits today at 6.62 (normal reference range 5-11). Your CRP level, which looks at inflammation in the body, is also downtrending. Given your vitals have remained stable, and your wound culture shows pill form of antibiotics with sensitivity, we feel that you are safe to return home at this time as long as you continue to take antibiotics for the next 8 days. New prescriptions on discharge: Ciprofloxacin 750 mg every 12 hours x 8 days Metronidazole 500 mg every 8 hours x 8 days While you are on these antibiotics, we recommend that you hold methotrexate and Plaquenil. You may resume these medications at the behest of your PCP. Please plan for a transitional care appoint with your PCP in the next 1 to 2 weeks. Per your request, we will also send fluconazole ("Diflucan") 150mg x 1 dose to be taken as needed if you develop a yeast infection following antibiotic treatment. If you develop any new or worsening symptoms, such as fever, chills, severe right lower extremity pain, purulent drainage from the wound site, or increased redness or swelling, please return to the emergency department immediately. It was a pleasure take care of you. Please reach out with any questions or concerns. Sincerely, The Hospital medicine team at [facility] Pending Studies at Discharge: No Stand-Alone Forms: My [facility] Medications and DC Order Prescriptions: New ciprofloxacin HCl 750 mg tablet 750 mg PO BID 8 Days Qty: 16 0RF Rx Instructions: Take 1 tablet by mouth twice daily metronidazole 500 mg tablet 500 mg PO Q8H 8 Days Qty: 24 0RF Rx Instructions: Take 1 tablet by mouth every 8 hours fluconazole 150 mg tablet 150 mg PO DAILY PRN (Reason: Vulvovaginal candidiasis) Qty: 1 0RF Rx Instructions: Take 1 tablet as needed for yeast infection Continued azelastine 137 mcg (0.1 %) aerosol,spray 2 spray intranasal DAILY PRN (Reason: allergy symptoms) Qty: 90 3RF cyanocobalamin (vitamin B-12) 1,000 mcg/mL kit 1,000 mcg IM .COMPLEX Qty: 1 3RF Rx Instructions: 1,000 mcg IM every 3 months; (DME) Monoject Safety Syringes 3 mL 22 gauge x 1 1/2" syringe See Dose Instructions .ROUTE .MEDSUPPLY Qty: 1 2RF Rx Instructions: use for monthly b12 injection furosemide 20 mg tablet 20 mg PO Q OTHER DAY PRN (Reason: edema) Qty: 30 0RF Airsupra 90-80 mcg/actuation HFA aerosol inhaler 2 inh inhalation QID PRN (Reason: shortness of breath) Qty: 5.9 3RF Rx Instructions: insurance wont pay (DME) insulin syringe-needle U-100 1 mL 27 gauge x 1/2" syringe See Rx Instructions .Route Qty: 50 0RF Rx Instructions: As directed budesonide-formoterol [Symbicort] 80-4.5 mcg/actuation HFA aerosol inhaler 2 puff inhalation BID PRN (Reason: bronchospasm) Qty: 10.2 3RF cholecalciferol (vitamin D3) 25 mcg (1,000 unit) capsule 1,000 units PO QAM (DME) Auto Titrating CPAP Misc .Route Qty: 1 0RF Rx Instructions: 5 to 15 cm of water, mask fit to patient comfort, heated humidification, compliance download capabilities, DME of patient choice; folic acid 1 mg tablet 1 mg PO BID nystatin 100,000 unit/gram powder 1 appln TOP TID PRN (Reason: Rash) Shafter 3-6-9 1,200 mg Capsule 1 cap PO QAM Flintstones Complete Tablet,Chewable 1 tab PO BID calcium citrate-vitamin D3 [Citracal-D3 Petites] 200 mg-6.25 mcg (250 unit) Tablet 2 tab PO BID Held methotrexate sodium (PF) 25 mg/mL solution 15 mg subcut Q7D Qty: 10 0RF Hold Instructions: Resume on 04/11/25. HOLD while taking antibiotics Rx Instructions: sundays hydroxychloroquine 200 mg tablet 200 mg PO BID Qty: 180 1RF Hold Instructions: Resume on 04/11/25. HOLD while taking antibiotics Discharge Orders: Discharge Order (Routine); Ordered 03/30/25 Ordered By: Delvis Ortiz/Other Patient Handouts: ED Wound Check (Infection) Admission Data Admit Date/Time: 03/28/25 01:45 Attending Provider: Jose Carroll Admit Provider: Edward Benitez Primary Care Provider: Wm Knight Other Providers: Edward Benitez; Odalis Saldaña Hospital Stay Data Consultations 03/28/25 00:35 ED Decision to Admit Stat 03/29/25 10:31 Consult General Surgery Routine Diagnostic Imagining Performed 03/27/25 22:15 CT tib/fib RT w con Stat Pending Results Patient Have Any Pending Studies at Discharge: No Discharge Instructions Given to Patient (Per Discharging Provider) You are hospitalized at [facility] from 03/28 for 03/30 for a right lower extremity wound. Initially, you were treated with an antibiotic called Rosy as an outpatient, but reported that you still had worsening of redness/swelling in your leg. For these reasons, you were hospitalized for IV antibiotics while awaiting a surface wound culture. You received IV daptomycin and Zosyn while in the hospital. You were seen by our wound care nurse, who debrided the wound while in the hospital. Please continue to clean and dress the wound once daily. We recommend that you follow-up with the wound care center upon discharge. While your white blood cell count was mildly elevated at 11.6 on arrival, it is back down to normal limits today at 6.62 (normal reference range 5-11). Your CRP level, which looks at inflammation in the body, is also downtrending. Given your vitals have remained stable, and your wound culture shows pill form of antibiotics with sensitivity, we feel that you are safe to return home at this time as long as you continue to take antibiotics for the next 8 days. New prescriptions on discharge: Ciprofloxacin 750 mg every 12 hours x 8 days Metronidazole 500 mg every 8 hours x 8 days While you are on these antibiotics, we recommend that you hold methotrexate and Plaquenil. You may resume these medications at the behest of your PCP. Please plan for a transitional care appoint with your PCP in the next 1 to 2 weeks. Per your request, we will also send fluconazole ("Diflucan") 150mg x 1 dose to be taken as needed if you develop a yeast infection following antibiotic treatment. If you develop any new or worsening symptoms, such as fever, chills, severe right lower extremity pain, purulent drainage from the wound site, or increased redness or swelling, please return to the emergency department immediately. It was a pleasure take care of you. Please reach out with any questions or concerns. Sincerely, The Hospital medicine team at [facility] Total Time Total Time Spent Total Time Spent (In Minutes): 35 C[place] [address] INP/OBS DISCH >30 MIN Patient Type Established Medical Decision Making Moderate Complexity Diagnoses Traumatic open wound of right lower leg with infection S81.801A; L08.9 Immunocompromised state due to drug therapy D84.821 Rheumatoid arthritis, involving unspecified site, unspecified whether rheumatoid factor present M06.9 Rheumatoid arthritis location: unspecified site Rheumatoid factor presence: unspecified presence Asthma J45.906
[2025-03-30] MEDS: COLLAGENASE OINT 30 GM TUBE EXT SCH (10:37)
[2025-03-30 10:46] VITALS: BP 150/85
== END 2025-03-30 11:20 | disposition home or self-care (01) | DRG 603 ==
LOC: ED 21:23 → SUATTDRO 03-28 01:45 → EDINP 03-28 01:45 → 2E 03-28 11:34